=== PATIENT | female | born 1970 | race Caucasian/White ===

== ENCOUNTER → 2018-02-28 08:01 | Outpatient (CLI) | payer OTHER, SELFPAY ==
--- NOTE | 2018-02-28 08:04 | BI_ITS ---
MAMMOGRAPHY - BILATERAL SCREENING REASON FOR EXAM: Female, 47 years old. Routine annual screening examination. PERTINENT HISTORY: Non-contributory. TECHNIQUE: Digital bilateral breast fe (3D mammographic acquisition) in the CC and MLO projections. 2-D mediolateral oblique (MLO) and craniocaudad (CC) views of both breasts were obtained. CAD: Full Field Digital Mammography with Computer Added Detection was performed. COMPARISON: Comparison is made with prior study dated February 03, 2016 and February 01, 2014. FINDINGS: Breast Composition: There are scattered areas of fibroglandular density. There are no dominant masses or suspicious calcifications. Stable a symmetric breast tissue where more breast tissue is seen in the upper outer quadrant of the right breast as compared to the left side. No other significant abnormalities are identified. There has been no significant change since the prior study. BI/SCREENING MAMM (CAD), BILAT IMPRESSION: Stable bilateral screening mammogram. Yearly follow-up mammogram recommended. (A) ASSESSMENT CATEGORY: BIRADS Category 2: Benign. A letter regarding these results will be sent to the patient by the facility within 30 days. Approximately 10% of breast cancers are not detected by mammography. A normal mammogram should not delay biopsy of a clinically suspicious abnormality. [id number] Electronically Signed: Tobias Magaña MD at 10:09 EDT Tel [phone], Service support ,
== END ==
PROVIDERS: Family Provider Family Medicine; PCP Family Medicine; Visit Provider Family Medicine
DX: Z12.31 Encounter for screening mammogram for malignant neoplasm of breast (principal)
CPT/HCPCS: 77063; 77067

== ENCOUNTER → 2018-06-12 10:35 | Outpatient (CLI) | payer OTHER, SELFPAY ==
--- NOTE | 2018-06-12 10:37 | RAD_ITS ---
STUDY: X-RAY - LEFT ANKLE REASON FOR EXAM: Female, 48 years old. Injury. Pain. TECHNIQUE: 3 view(s) of the ankle. COMPARISON: None. FINDINGS: Normal visualized distal tibia and fibula. Normal medial and lateral malleoli. Normal tibiotalar articulation and ankle mortise. Moderate plantar spur. The visualized subtalar, talonavicular, calcaneocuboid and tarsal articulations are normal. There is no demonstrated fracture. The soft tissue structures are unremarkable. RAD/Ankle min 3 Views IMPRESSION: Normal x-ray examination of the ankle. Electronically Signed: Jin Delgado MD at 17:17 EDT , Service support ,
--- NOTE | 2018-06-12 10:37 | RAD_ITS ---
STUDY: X-RAY - LEFT FOOT CLINICAL: Female, 48 years old. Injury. Pain. TECHNIQUE: 3 view(s) of the foot. COMPARISON: None. FINDINGS: There is a plantar calcaneal spur. Normal visualized subtalar, talonavicular, calcaneocuboid, tarsal and tarsometatarsal articulations. Normal metatarsi. Normal metatarsophalangeal joint of the great toe. Normal tibial and fibular sesamoid bones. Normal interphalangeal joint of the great toe. Normal phalanges of the great toe. Normal second through fifth metatarsophalangeal joints. Normal interphalangeal joints and phalanges of the lesser toes. 3 mm soft tissue calcification medial to the head of the fifth metatarsal probably from previous injury. Otherwise normal soft tissues. RAD/Foot min 3 Views IMPRESSION: No acute abnormality. No significant abnormality. Electronically Signed: Jin Delgado MD at 17:16 EDT , Service support ,
== END ==
PROVIDERS: Family Provider Family Medicine; PCP Family Medicine; Visit Provider Physician Assistant
DX: S93.402A Sprain of unspecified ligament of left ankle, initial encounter (principal); S93.602A Unspecified sprain of left foot, initial encounter
CPT/HCPCS: 73610; 73630

== ENCOUNTER 2018-06-29 11:05 | Observation (INO) | payer OTHER, SELFPAY ==
[2018-06-29] VITALS (13 sets, daily range): BP systolic 142–205; BP diastolic 56–90; PULSE 66–76; RESP 14–21; TEMP 36.2–36.8; O2SAT 96–99; BMI 44.1
--- NOTE | 2018-06-29 11:28 | EKG12_ITS ---
Test Reason : NUMB TINGLE Blood Pressure : / mmHG Vent. Rate : 072 BPM Atrial Rate : 072 BPM P-R Int : 138 ms QRS Dur : 080 ms QT Int : 386 ms P-R-T Axes : 052 023 017 degrees QTc Int : 422 ms Normal sinus rhythm Normal ECG Confirmed by DIANA HERRERA, ANGELICA ([id number]), film editor SHARRI BOWMAN ([id number]) on 07/02/2018 10:50:35 AM Referred By: BRANNON/JOY Confirmed By:ANGELICA ORTIZ MD
--- NOTE | 2018-06-29 11:29 | CT_ITS ---
STUDY: CTA carotid REASON FOR EXAM: Female, 48 years old. Left arm numbness and tingling. Facial twitching RADIATION DOSAGE (If Supplied By Facility): CTDIvol = ( 20.85 ) mGy, DLP = ( 1547.68 ) mGycm. Individualized dose optimization techniques were used for this CT.? TECHNIQUE: Ct images of the neck were obtained after intravenous administration of 100 cc of Isovue-370. Maximum intensity projection imaging was performed COMPARISON: None. FINDINGS: The origin of the great vessels are patent. Bilateral common carotid arteries are patent. The carotid bifurcations are patent. Cervical internal carotid arteries are patent however tortuous. The origin of the vertebral arteries are patent. Bilateral vertebral arteries are patent. Mild degenerative changes in the cervical spine. Borderline enlarged level 2 station cervical lymph nodes prominent palatine tonsils which can be assessed with direct visual dissection. Slightly prominent appearance of the thyroid gland. Airways patent. No apical pneumothorax. IMPRESSION: No significant cervical carotid or vertebral artery stenosis, occlusion or dissection seen. CT/CTA Neck W/WO Contrast IMPRESSION: Electronically Signed: Dany Crowder, at 14:13 EDT Tel , Service support ,
--- NOTE | 2018-06-29 11:29 | CT_ITS ---
STUDY: CTA OF THE BRAIN REASON FOR EXAM: Female, 48 years old. Facial twitching and left arm numbness and tingling RADIATION DOSAGE (If Supplied By Facility): CTDIvol = ( 20.85 ) mGy, DLP = ( 1547.68 ) mGycm TECHNIQUE: CT angiography was performed with a multi-detector CT scanner. Data acquisition was obtained from the skull base through the vertex following intravenous administration of 100 ml of Isovue 370. MIP images were reconstructed from the axial data set. Post-processing of the angiographic images was performed, with multiplanar reformation and 3D reconstruction. Individualized dose optimization techniques were used for this CT. COMPARISON: None. FINDINGS: Petrous, cavernous and supraclinoid segments of the internal carotid arteries are patent. The bilateral middle cerebral arteries are patent. Anterior cerebral arteries are patent. Hypoplastic right A1 segment of the anterior cerebral artery seen. V4 segments of the vertebral arteries are patent. The basilar artery is patent. The posterior cerebral arteries and superior cerebellar arteries are patent IMPRESSION: No evidence for intracranial large vessel occlusion Electronically Signed: Dany Crowder, at 14:10 EDT Tel , Service support , STUDY: CT BRAIN WITHOUT CONTRAST REASON FOR EXAM: Female, 48 years old. Facial twitching and left arm numbness RADIATION DOSAGE (If Supplied By Facility): CTDIvol = ( 44.99 ) mGy, DLP = ( 734.24 ) mGycm TECHNIQUE: Transaxial CT imaging of the brain was performed without administration of intravenous contrast material. Individualized dose optimization techniques were used for this CT. COMPARISON: None. FINDINGS: No evidence for shift of midline structures, mass effect or compression of ventricles noted. No acute intra-articular extra-axial hemorrhage is seen. No abnormal intracranial fluid collections identified. Scattered foci of low-attenuation in the periventricular and subcortical white matter noted which are nonspecific in imaging appearance however likely related with chronic small vessel disease. 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 Calvarium is intact. Mastoid air cells are clear. Paranasal sinuses are essentially clear. IMPRESSION: No evidence for acute intracranial hemorrhage, mass effect or acute large territory infarcts. Chronic small vessel disease. Electronically Signed: Dany Crowder, at 14:11 EDT Tel , Service support , CT/CTA Head W/WO Contrast
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
--- NOTE | 2018-06-29 11:40 | RAD_ITS ---
STUDY: X-RAY CHEST REASON FOR EXAM: Female, 48 years old. Chest pain and left arm numbness. TECHNIQUE: Single AP portable view of the chest. COMPARISON: Prior comparison studies are not available for review at this time. FINDINGS: There are slightly prominent markings in the right lower lung probably chronic. No focal infiltrate is seen. There is no demonstrated pleural abnormality. There is borderline cardiomegaly. Normal mediastinum and andria. Normal visualized pulmonary arteries. Normal visualized aortic arch and descending thoracic aorta. The thoracic spine is suboptimally visualized. Normal visualized ribs, clavicles, and shoulders. There is no demonstrated abnormality of the visualized soft tissue structures of the upper abdomen. RAD/Chest 1 View (Portable) IMPRESSION: No active pulmonary disease. Electronically Signed: Lasha Ba MD at 12:29 EDT Tel , Service support ,
[2018-06-29] MEDS: 0.9% Normal Saline 1,000 ML 150 ML IV (12:06)
[2018-06-29 12:32] LABS: Absolute Lymphocyte Count 2.16 X10^3/ul (0.83-4.51); Absolute Neutrophil Count 5.6 X10^3/uL (2.0-7.7); Basophil# 0.02 X10^3/uL; Basophil% 0.2 % (0-1); Eosinophil# 0.15 X10^3/uL; Eosinophils% 1.8 % (0-5); Hematocrit 39.8 % (37-47); Hemoglobin 13.4 g/dl (12.0-15.0); Lymphocyte # 2.16 X10^3/ul (4.0); Mean Corp Hgb Conc 33.7 g/gl (32-36); Mean Corpuscular Hgb 30.2 pg (27.0-32.0); Mean Corpuscular Volume 89.6 fL (81-99); Mean Platelet Vol. 10.6 fl (6.2-12.0); Monocyte# 0.38 X10^3/uL; Monocyte% 4.6 % (0-10); Neutrophil # 5.59 X10^3/uL (2.7-7.7); Neutrophil % 67.2 % (47-70); Platelet Count 182 K/mm3 (150-450); RBC Distribution Width CV 12.9 % (11.6-14.6); RBC Distribution Width SD 42.1 fl (35.1-43.9); Red Blood Count 4.44 M/mm3 (4.2-5.4); White Blood Count 8.3 K/mm3 (4.4-11.0)
[2018-06-29 12:35] LABS: POSITIVE COUNT NO; POSITIVE DIFFERENTIAL NO; POSITIVE MORPHOLOGY NO
[2018-06-29 12:43] LABS: Anion Gap 9 (5-15); BUN 15 mg/dL (7-18); Calcium,Total 9.1 mg/dL (8.5-10.1); Chloride 105 mmol/L (98-107); Creatinine, Serum 0.83 mg/dL (0.55-1.02); EST Glomerular Filtration Rate 78 mL/min (>60); Est Glom Filt Rate - Afr Amer 95 mL/min (>60); Estimated Creatinine Clearance 79.28 ml/min; Glucose 100 mg/dL (74-106); Sodium Level 143 mmol/L (136-145)
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
--- NOTE | 2018-06-29 16:07 | MRI_ITS ---
STUDY: MRI BRAIN WITHOUT CONTRAST REASON FOR EXAM: Female, 48 years old. Left-sided paresthesias TECHNIQUE: Standardized multiplanar fat and water weighted pulse sequences were obtained. COMPARISON: CT of the brain on June 29, 2018 FINDINGS: Normal size of the ventricles and extra-axial spaces for the patient's age. There are a few tiny punctate white matter lesions without mass effect or restricted diffusion. There is a tiny punctate focus of restricted diffusion in the right frontal parietal region consistent with acute ischemic changes.. Normal bilateral basal ganglia. Normal thalami. There is no extra-axial fluid accumulation. Normal flow voids within the major intracranial circulation suggesting patency by spin echo criteria. Normal sella turcica, pituitary gland, infundibular stalk, optic chiasm and hypothalamus. Normal tectal plate and pineal gland. Normal midbrain, rebecca and medulla. Normal cerebellum. Normal basal cisterns. Normal bilateral temporal bones. Normal bilateral internal auditory canals. No demonstrated orbital abnormality, within the constraints of a routine brain study. Normal visualized paranasal sinuses. Normal calvarium and skull base. Normal visualized soft tissue structures. Normal visualized upper cervical spine. MRI/Brain without Contrast IMPRESSION: Minor periventricular white matter ischemic changes with solitary tiny focus of restricted diffusion in the right frontal parietal region consistent with acute ischemic changes. Electronically Signed: King Amanda MD at 17:22 EDT , Service support ,
[2018-06-30] VITALS (9 sets, daily range): BP systolic 141–159; BP diastolic 70–92; PULSE 58–95; RESP 18–20; TEMP 36.6–37; O2SAT 96–98; BMI 44.1
[2018-06-30] MEDS: 0.9% NaCl Peripheral Flush Adult/Peds IV (04:50)
[2018-06-30 05:26] LABS: Anion Gap 11 (5-15); BUN 14 mg/dL (7-18); BUN/Creat Ratio 20.1 RATIO (10-20); Calcium,Total 8.6 mg/dL (8.5-10.1); Chloride 104 mmol/L (98-107); Cholesterol 155 mg/dL (200); EST Glomerular Filtration Rate 96 mL/min (>60); Est Glom Filt Rate - Afr Amer 117 mL/min (>60); Estimated Creatinine Clearance 94.01 ml/min; Glucose 112 mg/dL (74-106); High Density Lipoprotein 46 mg/dL; Potassium 4.1 mmol/L (3.5-5.1); Sodium Level 140 mmol/L (136-145); Triglycerides 107 mg/dL; Very Low Density Lipoprotein 21 mg/dL (5-40)
--- NOTE | 2018-06-30 07:00 | ECHOD_ITS ---
Reason For Study: TIA/STROKE Procedure This was a 2D Doppler, Color Flow transthoracic echocardiogram. The exam was of adequate technical quality. Exam performed portable in patient room. Left Ventricle Normal LV size. Left ventricular systolic function is normal. The estimated ejection fraction is 70 %. Transmitral doppler flow suggestive of impaired relaxation of left ventricle. No regional wall motion abnormalities noted. Right Ventricle Normal RV size. Normal systolic function. Atria The left atrium is mildly enlarged. Normal right atrium. No doppler evidence for ASD. Bubble contrast study negative for right to left interatrial shunt. Mitral Valve There is no mitral annular calcification. Normal mitral valve. Trivial mitral valve insufficiency. Tricuspid Valve Normal tricuspid valve. Trivial tricuspid valve insufficiency. Right ventricular systolic pressure estimated to be 48 mmHg. Aortic Valve Trisinus/trileaflet aortic valve. Normal aortic valve. Pulmonic Valve The pulmonic valve is not well visualized. Great Vessels Normal sized aortic root. Pericardium/Pleural No pericardial effusion. Medication Performed a rapid injection of agitated mix of 9 cc saline and 1cc air to assess for atrial septal defect. MMode/2D Measurements & Calculations LVIDd: 4.4 cm IVSd: 1.2 cm Ao root diam: 2.8 cm LVIDs: 2.3 cm LVPWd: 1.1 cm LA dimension: 4.1 cm FS: 47.1 % LAV(MOD-bp): 86.8 ml LA A4 area: 24.8 cm2 RA A4 area: 18.2 cm2 LAV(MOD-bp) Indexed: 38.4 ml/m2 LAV(MOD-sp2): 86.1 ml LAV(MOD-sp4): 83.0 ml Time Measurements MV dec time: 0.29 sec Doppler Measurements & Calculations MV E max tyrel: 117.9 cm/sec Lat Peak E' Tyrel: 11.6 cm/sec Med Peak E' Tyrel: 7.4 cm/sec MV A max tyrel: 139.4 cm/sec E/E' lat: 10.2 E/E' med: 15.9 MV E/A: 0.85 MV V2 max: 151.5 cm/sec MV P1/2t max tyrel: 152.4 cm/sec Ao V2 max: 185.7 cm/sec MV max P.2 mmHg MV P1/2t: 89.5 msec Ao max P.8 mmHg MV V2 mean: 86.0 cm/sec MV dec slope: 498.6 cm/sec2 Ao V2 mean: 123.4 cm/sec MV mean P.5 mmHg MVA(P1/2t): 2.5 cm2 Ao mean P.9 mmHg MV V2 VTI: 39.1 cm Ao V2 VTI: 40.7 cm LV V1 max: 166.9 cm/sec PA V2 max: 126.8 cm/sec TR max tyrel: 335.8 cm/sec LV V1 max P.1 mmHg TR max P.1 mmHg LV V1 mean P.5 mmHg LV V1 mean: 109.5 cm/sec LV V1 VTI: 38.4 cm Interpretation Summary Left ventricular systolic function is normal. The estimated ejection fraction is 70 %. The left atrium is mildly enlarged. Trivial mitral valve insufficiency. Trivial tricuspid valve insufficiency. Right ventricular systolic pressure estimated to be 48 mmHg. Transmitral doppler flow suggestive of impaired relaxation of left ventricle Bubble contrast study negative for right to left interatrial shunt. Ordering Physician: Tatiana Ricci Referring Physician: Hussein Pinto Performed By: Sukhwinder Gracia RCS
[2018-06-30] MEDS: Aspirin 81 MG TAB.CHEW PO (07:59)
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
--- NOTE | 2018-06-30 15:32 | MRI_ITS ---
STUDY: MRI CERVICAL SPINE WITHOUT CONTRAST REASON FOR EXAM: Female, 48 years old. Left-sided paresthesias TECHNIQUE: Standardized fat and water weighted pulse sequences were obtained in the sagittal and axial planes. COMPARISON: None FINDINGS: Normal foramen magnum and brainstem-cervical cord junction. Normal craniovertebral junction. Normal anterior atlantoaxial articulation. Normal odontoid process. 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 Normal vertebral bodies and posterior osseous elements. C2-3: Normal endplates. Normal disc height, signal and morphology. Normal central canal and intervertebral neural foramina. C3-4: Normal endplates. Normal disc height, signal and morphology. Normal central canal and intervertebral neural foramina. C4-5: Normal endplates. Normal disc height, signal and minimal bulging of the disc. Normal central canal and intervertebral neural foramina. C5-6: Normal endplates. Normal disc height, signal and minimal bulging of the disc.. Normal central canal and intervertebral neural foramina. C6-7: Normal endplates. Normal disc height, signal and tiny central disc protrusion.. Normal central canal and intervertebral neural foramina. C7-T1: Normal endplates. Normal disc height, signal and morphology. Normal central canal and intervertebral neural foramina. Normal cervical cord. Normal visualized soft tissue structures. MRI/Spine Cervical (Routine) IMPRESSION: Tiny central disc protrusion at C6-7 and minor bulging of the discs at C4-5 and C5-6 without significant spinal stenosis or cord compression Electronically Signed: King Amanda MD at 17:07 EDT , Service support ,
--- NOTE | 2018-06-30 18:56 | PCM.DC ---
- Discharge Diagnoses Current Active Problems: Current Active and Chronic Problems (Last Reviewed 06/12/18 @ 10:56 by Estrellita Osborn) Tingling of left arm and left side of face (Acute) You will use the following diet at home:: No restrictions Your food should be the consistency of: Regular Your liquids should be the consistency of: Regular/Thin Discharge Activity: Return to Normal Activity Return to work on:: 07/15/18 Weight Bearing Status: Full weight bearing Allergies/Adverse Reactions: Allergies bacitracin [From Neosporin ([id number])] Adverse Reaction (Verified 06/29/18 11:05) Rash bacitracin zinc [From Neosporin ([id number]-ojk-raoli)] Adverse Reaction (Verified 06/29/18 11:05) Rash neomycin sulfate [From Neosporin (foi-ftt-laykn)] Adverse Reaction (Verified 06/29/18 11:05) Rash polymyxin B [From Neosporin (qjp-dmv-vqjfa)] Adverse Reaction (Verified 06/29/18 11:05) Rash Medications to take at Discharge Aspirin [Aspirin, Baby] 81 mg PO DAILY@0800 tab.chew 06/30/18 Atorvastatin Calcium [Lipitor] 20 mg PO DAILY #30 tab 06/30/18 The following prescriptions were given: Atorvastatin Calcium [Lipitor] 20 mg PO DAILY #30 tab Primary Care Physician: Lakeisha Wetzel DO [Primary Care Provider] - Please follow up with your Primary Care Physician in: later this week, she will need to set you up with a [facility] as an outpatient Test Results: Test results from this visit will be discussed in further detail at your follow-up appointment, if applicable. Please Follow Up With: Amrit Sandoval MD When: Jul 14 or the week prior ( or Saturday of that week)
--- NOTE | 2018-06-30 18:59 | DCINST_ITS ---
- Discharge Diagnoses Current Active Problems: Current Active and Chronic Problems (Last Reviewed 06/12/18 @ 10:56 by Estrellita Osborn) Tingling of left arm and left side of face (Acute) You will use the following diet at home:: No restrictions Your food should be the consistency of: Regular Your liquids should be the consistency of: Regular/Thin Discharge Activity: Return to Normal Activity Return to work on:: 07/15/18 Weight Bearing Status: Full weight bearing Allergies/Adverse Reactions: Allergies bacitracin [From Neosporin ([id number])] Adverse Reaction (Verified 06/29/18 11:05) Rash bacitracin zinc [From Neosporin (lmr-mvy-virks)] Adverse Reaction (Verified 04/11 11:05) Rash neomycin sulfate [From Neosporin (eli-znd-ciwwb)] Adverse Reaction (Verified 04/11 11:05) Rash polymyxin B [From Neosporin (eng-mrn-cteke)] Adverse Reaction (Verified 11:05) Rash Medications to take at Discharge Aspirin [Aspirin, Baby] 81 mg PO DAILY@0800 tab.chew 06/30/18 Atorvastatin Calcium [Lipitor] 20 mg PO DAILY #30 tab 06/30/18 The following prescriptions were given: Atorvastatin Calcium [Lipitor] 20 mg PO DAILY #30 tab Primary Care Physician: Lakeisha Wetzel DO [Primary Care Provider] - Please follow up with your Primary Care Physician in: later this week, she will need to set you up with a JENNIFER as an outpatient Test Results: Test results from this visit will be discussed in further detail at your follow- up appointment, if applicable. Please Follow Up With: Amrit Sandoval MD When: Jul 14 or the week prior ( or Saturday of that week)
--- NOTE | 2018-06-30 19:36 | NURSING ---
This nurse called lab to find out about lab draw for lupus that Dr. Odonnell ordered. Lab personnel stated that she called [facility] to add this test to blood they were sent earlier for testing. Informed pt. of this and she is now able to go home as discharge process is complete. Pt. left with and belongings. Pt. walking off unit with no distress noted.
--- NOTE | 2018-07-02 19:17 | DS.PCM_ITS ---
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 Patient denied any speech difficulties or any visual disturbances. Blood pressure in the emergency room was elevated at 205/105, and age stroke score was 0. CT of the brain showed what appeared to be a small right superior frontal lobe infarct which was called chronic. No acute abnormality was noted. CT of the brain was unremarkable. CTA of the neck showed no significant stenosis. Patient was placed and observation status on PCU, she was given labetalol in the emergency room for hypertension, an MRI of the brain was obtained the following day as well as a C-spine MRI. C-spine MRI showed degenerative disc disease of the cervical spine with a tiny central disc protrusion at C6-C7 and minor bulging of the discs at C4-C5 and C5-C6 without significant spinal stenosis or cord compression. MRI of the brain showed an acute tiny frontal parietal infarction. Patient was seen and examined on 06/30/18, she was discharged in stable condition to home. Patient did not require PT, OT, or speech evaluation. Discharge Activity: Return to Normal Activity Return to work on:: 07/15/18 Weight Bearing Status: Full weight bearing Home Medications: Medications to take at Discharge Aspirin [Aspirin, Baby] 81 mg PO DAILY@0800 tab.chew 06/30/18 Atorvastatin Calcium [Lipitor] 20 mg PO DAILY #30 tab 06/30/18 Following Prescrptions Were Given to Patient: Atorvastatin Calcium [Lipitor] 20 mg PO DAILY #30 tab Primary Care Physician: Lakeisha Wetzel DO [Primary Care Provider] - Please follow up with your Primary Care Physician in: later this week, she will need to set you up with a JENNIFER as an outpatient Please Follow Up With: Amrit Sandoval MD When: Jul 14 or the week prior ( or Saturday of that week) Disposition: Home Minutes spent on discharge:: 25 Patient Condition:: Stable Medical Necessity - Tobacco Use Smoking Status: Never smoker Meaningful Use Info Meaningful Use Diagnoses (Choose all that apply): Ischemic CVA - CVA Therapy Assessed for PT,OT and/or ST?: No Reason therapy not assessed?: Patient Refused - PT and OT as well as speech therapy was not felt necessary for this patient during her hospitalization - Ischemic Stroke Antithrombotic order at d/c?: Yes Dx of Atrial fib/flutter?: No Anticoagulant at discharge?: No Reason anticoagulant not ordered: Treatment not Indicated Statins at discharge?: Yes Primary Dx Acute Ischemic CVA?: Yes IV tPA ordered during stay?: No Reason IV t-PA not ordered: Treatment not Indicated Code Visit OBSV E&M: 74875 Observation care discharge
[2018-07-07 20:08] LABS: Protein C Antigen 104 % (60-150); Protein C, Functional 135 % (73-180)
[2018-07-08 07:02] LABS: Anti-Cardiolipin Ab, IgG, Qn < 9 GPL U/mL (0-14); Anti-Cardiolipin Ab, IgM, Qn < 9 MPL U/mL (0-12); Anti-Thrombin 3 AG, Immunol 83 % (72-124); Antithrombin 3 Function 102 % (75-135); Beta-2-Glycoprotein I IgA <9 (0-25); Beta-2-Glycoprotein I IgG <9 (0-20); Beta-2-Glycoprotein I IgM <9 (0-32)
== END 2018-06-30 19:10 | disposition home or self-care (01) ==
LOC: ED 13:40 → PCU 16:06
PROVIDERS: Admitting Provider Internal Medicine; Emergency Provider Emergency Medicine; Family Provider Family Medicine; PCP Family Medicine; Visit Provider Internal Medicine
DX: I63.8 Other cerebral infarction (principal); M50.30 Other cervical disc degeneration, unspecified cervical region; I10 Essential (primary) hypertension; R20.0 Anesthesia of skin; R20.2 Paresthesia of skin; K21.9 Gastro-esophageal reflux disease without esophagitis; I16.0 Hypertensive urgency; R29.700 NIHSS score 0
CPT/HCPCS: 36415; 70496; 70498; 70551; 71045; 72141; 80048; 80061; 81240; 81241; 84484; 85025; 85300; 85301; 85302; 85303; 85613; 86146; 86147; 93005; 93306; 96361; 96374; 99218; 99285; J7030; Q9957; Q9967; A4216; G0378

== ENCOUNTER 2018-07-15 12:41 | Emergency (ER) | payer OTHER, SELFPAY ==
[2018-07-15 12:42] VITALS: BP 200/90; PULSE 77; RESP 18; TEMP 37.7; O2SAT 98; BMI 43.2
[2018-07-15 12:49] VITALS: RESP 18
[2018-07-15] MEDS: 0.9% Normal Saline 1,000 ML 150 ML IV (13:29)
[2018-07-15 13:35] LABS: Absolute Lymphocyte Count 2.22 X10^3/ul (0.83-4.51); Absolute Neutrophil Count 4.6 X10^3/uL (2.0-7.7); Basophil# 0.02 X10^3/uL; Basophil% 0.3 % (0-1); Eosinophil# 0.12 X10^3/uL; Eosinophils% 1.6 % (0-5); Hematocrit 41.8 % (37-47); Hemoglobin 13.6 g/dl (12.0-15.0); Lymphocyte # 2.22 X10^3/ul (4.0); Lymphocyte % 30.4 % (19-41); Mean Corp Hgb Conc 32.5 g/gl (32-36); Mean Corpuscular Hgb 29.1 pg (27.0-32.0); Mean Corpuscular Volume 89.3 fL (81-99); Mean Platelet Vol. 10.5 fl (6.2-12.0); Monocyte# 0.38 X10^3/uL; Monocyte% 5.2 % (0-10); Neutrophil # 4.55 X10^3/uL (2.7-7.7); Neutrophil % 62.4 % (47-70); POSITIVE COUNT NO; POSITIVE DIFFERENTIAL NO; POSITIVE MORPHOLOGY NO; Platelet Count 152 K/mm3 (150-450); RBC Distribution Width CV 12.9 % (11.6-14.6); RBC Distribution Width SD 41.8 fl (35.1-43.9); Red Blood Count 4.68 M/mm3 (4.2-5.4); White Blood Count 7.3 K/mm3 (4.4-11.0)
[2018-07-15 13:47] LABS: Anion Gap 6 (5-15); BUN 12 mg/dL (7-18); BUN/Creat Ratio 16.8 RATIO (10-20); Calcium,Total 8.9 mg/dL (8.5-10.1); Chloride 104 mmol/L (98-107); Creatinine, Serum 0.72 mg/dL (0.55-1.02); EST Glomerular Filtration Rate 93 mL/min (>60); Est Glom Filt Rate - Afr Amer 113 mL/min (>60); Glucose 97 mg/dL (74-106); Potassium 3.8 mmol/L (3.5-5.1); Sodium Level 138 mmol/L (136-145)
[2018-07-15 13:54] VITALS: BP 172/80; PULSE 71; RESP 18; O2SAT 98
[2018-07-15 14:02] VITALS: BP 159/79; PULSE 71; RESP 18; O2SAT 98
--- NOTE | 2018-07-15 14:19 | ED.VISSUMM ---
- ER Visit Summary Date of Service: 07/15/18 Chief Complaint: Vertigo and lightheadedness History of Present Illness: The patient is a [address] Wetzel and Dr. Sandoval. She has a history of her stroke June 29 which she reports left her with left eye twitching and nystagmus. She went back to work today and reports that approximately 30 this morning while sitting she began to feel very lightheaded. She reports that her face felt hot and flushed during this episode. States that then again in approximately 1205 she had a sensation of vertigo that lasted approximately 2 seconds. During that she had been standing for approximately 1 minute. She was nauseated during this. She did not vomit. Is completely resolved. Patient reports she was seen by her primary care physician her blood pressure was elevated in the office and that they were waiting to see if this went down with time rather than put her on antihypertensives. Review of systems: General: No fever, chills, cold sweats. Cardiovascular: No chest pain, palpitations. Respiratory: No cough, shortness of breath, dyspnea on exertion. Gastrointestinal: No abdominal pain, nausea, vomiting, diarrhea, melena, or hematochezia. Genitourinary: No dysuria, frequency, hematuria. Skin: No rash. Neuro: No headache, numbness, weakness. Physical Examination: Vitals: 99.8, 200/90, 77, 18, 90% on room air which is not hypoxic. Repeat blood pressure is 140/74. General: Well-nourished and well-developed. Head: Normocephalic atraumatic. Neck: Supple, no lymphadenopathy. No JVD. Nontender. Cardiovascular: Regular rate and rhythm. No murmurs. Respiratory: No respiratory distress. Clear to auscultation bilaterally. Abdominal: Soft, nontender, nondistended, normal bowel sounds. No guarding, rebound, or peritoneal signs. Back: Nontender. Extremities: Nontender, no edema. Skin: Normal color, no rash. Neurologic: Alert and oriented ?3. Cranial nerves II through XII are intact. Normal strength and sensation. Psych: Normal affect. Test Results: CBC is normal. Chem-[address] brain shows chronic changes. I did review the MRI that she had earlier this month which showed minor periventricular white matter ischemic changes with a solitary tiny focus of restricted diffusion in the right frontoparietal region. Emergency Department Course and Treatment: Patient's blood pressure decreased to 140/74 without any treatment. I had a prolonged discussion with her about the need for antihypertensives and she would like to be started on something. We discussed possibility of an JOSE inhibitor, R, hydrochlorothiazide, and clonidine. Ultimately she opted for diltiazem. I also discussed the patient these episodes of facial flushing and hypertension may warrant further evaluation for pheochromocytoma, but I feel this can be performed as an outpatient. Treatment Plan: Patient is given a prescription for a diltiazem 120 mg p.o. daily and instructed follow-up her primary care physician within 3 days for repeat blood pressure check and further evaluation. Return to the emergency department for any worsening symptoms. Disposition: To home in improved and stable condition. Impression: 1. Hypertension. This note was generated with [employer] dictation software. It may contain incorrect words, spelling, and punctuation that were not noted in review of the chart prior to signing ED Disposition - Plan for ED Patient: Disposition: Home or Assisted Living Chief Complaint: Hypertension Instructions: ED HTN Established Prescriptions: Diltiazem HCl [Diltiazem 24Hr ER] 120 mg PO DAILY #30 cap.er.24h Referrals: Lakeisha Wetzel DO [Primary Care Provider] - 3-5 Days
[2018-07-15 15:02] VITALS: PULSE 68; RESP 18; O2SAT 98
[2018-07-15 15:10] VITALS: BP 170/68; PULSE 68; RESP 18; O2SAT 98
== END 2018-07-15 15:11 | disposition home or self-care (01) ==
PROVIDERS: Emergency Provider Emergency Medicine; Family Provider Family Medicine; PCP Family Medicine
DX: I10 Essential (primary) hypertension (principal); Z86.73 Personal history of transient ischemic attack (TIA), and cerebral infarction without residual deficits; Z79.82 Long term (current) use of aspirin; Z79.899 Other long term (current) drug therapy
CPT/HCPCS: 70450; 80048; 85025; 96360; 96361; 99285; A4216

== ENCOUNTER → 2018-07-16 09:46 | Outpatient (CLI) | payer OTHER, SELFPAY ==
[2018-07-16 10:36] LABS: Erythrocyte Sedimentation Rate 16 mm/hr (0-20)
[2018-07-16 10:54] LABS: CRP < 2.90 mg/L (0.0-3.0); Iron 79 ug/dL (50-170); T4 Free Direct 0.83 ng/dL (0.76-1.46); Thyroid Stim Hormone (TSH) 2.16 uIU/mL (0.358-3.74)
[2018-07-16 10:55] LABS: Vitamin B12 429 pg/mL (211-911)
[2018-07-17 14:39] LABS: ANTINUCLEAR ANTIBODIES DIRECT Negative (Negative)
[2018-07-20 13:56] LABS: Epinephrine, Pl <15 pg/mL (0-62); Norepinephrine, Pl 341 pg/mL (0-874)
[2018-07-21 11:10] LABS: Dopamine, Pl <30 pg/mL (0-48)
== END ==
PROVIDERS: Family Provider Family Medicine; PCP Family Medicine; Visit Provider Family Medicine
DX: M25.50 Pain in unspecified joint (principal); M79.1 Myalgia; I10 Essential (primary) hypertension; R23.2 Flushing; R20.2 Paresthesia of skin; R53.83 Other fatigue
CPT/HCPCS: 36415; 82384; 82607; 83540; 84439; 84443; 84480; 85652; 86038; 86140

== ENCOUNTER → 2018-07-17 11:14 | Outpatient (CLI) | payer OTHER, SELFPAY ==
[2018-07-19 12:07] LABS: Dopamine, UR 271 ug/L (Undefined); Epinephrine, 24Ur 3 ug/24 hr (0-20); Epinephrine, Ur 2 ug/L (Undefined); Norepinephrine, 24Ur 63 ug/24 hr (0-135); Norepinephrine, Ur 42 ug/L (Undefined)
[2018-07-20 11:21] LABS: Dopamine, 24Ur 407 ug/24 hr (0-510)
== END ==
PROVIDERS: Family Provider Family Medicine; PCP Family Medicine; Visit Provider Family Medicine
DX: M25.50 Pain in unspecified joint (principal); M79.1 Myalgia; I10 Essential (primary) hypertension; R23.2 Flushing; R20.2 Paresthesia of skin; R53.83 Other fatigue
CPT/HCPCS: 81050; 82384

== ENCOUNTER → 2018-07-18 14:32 | Outpatient (CLI) | payer OTHER, SELFPAY ==
[2018-07-18 15:26] LABS: 24HR. Urine Creatinine 1.92 g/24 HR (0.70-1.90)
[2018-07-23 03:07] LABS: Metanephrine, Ur 30 ug/L (Undefined); Normetanephrines, Ur 179 ug/L (Undefined)
[2018-07-23 11:23] LABS: Metanephrines, 24Ur 62 ug/24 hr (45-290); Normetanephrines, 24Ur 367 ug/24 hr (82-500)
== END ==
PROVIDERS: Family Provider Family Medicine; PCP Family Medicine; Visit Provider Family Medicine
DX: R59.0 Localized enlarged lymph nodes (principal); M25.50 Pain in unspecified joint; M79.1 Myalgia; I10 Essential (primary) hypertension; R23.2 Flushing; R20.2 Paresthesia of skin; R53.83 Other fatigue
CPT/HCPCS: 76536; 82570; 83835

== ENCOUNTER → 2018-07-19 07:13 | Outpatient (CLI) | payer OTHER, SELFPAY ==
--- NOTE | 2018-07-19 07:16 | CT_ITS ---
STUDY: CT ABDOMEN AND PELVIS WITHOUT CONTRAST REASON FOR EXAM: Female, 48 years old. Evaluate for pheochromocytoma. RADIATION DOSAGE (If Supplied By Facility): CTDIvol = ( 23 ) mGy, DLP = ( 1241 ) mGycm TECHNIQUE: Transaxial images were obtained from the dome of the diaphragm to the symphysis pubis with oral contrast, and without intravenous contrast. Sagittal and coronal images were reconstructed. Individualized dose optimization techniques were used for this CT. COMPARISON: None. FINDINGS: Evaluation of the abdominal viscera is limited in the absence of intravenous contrast. The visualized lung bases are clear. The visualized portions of the heart and pericardium are within normal limits. The patient is status post cholecystectomy. The liver demonstrates an unremarkable unenhanced appearance. The spleen is normal in size. The pancreas demonstrates an unremarkable unenhanced appearance. The adrenal glands are within normal limits. There are no renal or ureteral stones. There is no hydronephrosis. Normal visualized stomach. There is no bowel obstruction or inflammation. The appendix is visualized and appears normal. The aorta is normal in caliber. There is no abdominal or pelvic free air, free fluid, fluid collection or lymphadenopathy. There is an intrauterine device noted. There are no destructive osseous lesions. CT/Abdomen/Pelvis without Cont IMPRESSION: Study limited without contrast. No pheochromocytoma identified. No adrenal nodules or masses. No abnormal soft tissue masses to suggest an extraadrenal pheochromocytoma. Gallstones. Electronically Signed: Hussein Hernández, at 23:08 EDT Tel , Service support ,
== END ==
PROVIDERS: Family Provider Family Medicine; PCP Family Medicine; Visit Provider Family Medicine
DX: R23.2 Flushing (principal); I16.0 Hypertensive urgency
CPT/HCPCS: 74176

== ENCOUNTER → 2018-08-25 13:15 | Outpatient (CLI) | payer OTHER, SELFPAY ==
--- NOTE | 2018-08-25 13:17 | STEWCON_ITS ---
Reason For Study: Chest Pain Stress Results Protocol: Singh Protocol Maximum Predicted HR: 174 bpm Target HR: 148 bpm% Max imum Predicted HR: 89 % DurationHeart Rate Stage (mm:ss) (bpm) BPCom ment Baseline 64 132/84 Diluted Definity 2 ML Given; No Chest Pain Singh Protocol Stage I 3:00 14 1 146/80No Chest Pain Singh Protocol Stage II 3:00 15 5 190/78No Chest Pain Recovery 85 126/68 No Chest Pain Stress Duration: 6:00 mm:ss Maximum Stress HR: 155 bpmM ETS: 7 Baseline Echocardiogram Findings Stress Echo Wall motion Data Resting WMIntermediate WMStress WM Resting Wall Motion Wall Motion Stress No regional wall motion No regional wall motion abnormalities noted. abnormalities noted. Ejection Fraction 60 %. Ejection Fraction 70 %. Stress Results Normal blood pressure response to exercise. Exercise was stopped due to fatigue. Interpretation Summary Exercise stress echo. Resting EKG demonstrates normal sinus rhythm with a rate of 64 bpm normal intervals and noted resting blood pressures 132/84 mmHg. The patient exercised according to regular Singh protocol for total duration of 6 minutes attaining a maximum heart rate of 164 bpm which was 94% of maximum predicted heart rate and a workload of 7 metabolic equivalents. At rest there were no ST or T wave changes noted suggest ischemia. The patient maintained sinus rhythm throughout the recording. At peak exercise upsloping ST changes only were noted. The resting blood pressure 132/84 with a peak blood pressure 190/78 mmHg. No clinical angina was noted the test was terminated due to shortness of breath. Resting echocardiogram demonstrates ejection fraction approximately 60%. The patient exercised according to the Singh protocol and at peak exercise the peak ejection fraction was noted to be 70%. No new wall motion abnormalities were present. No clinical angina was present. Conclusion: Normal exercise stress echo at a moderate workload. No clinical angina noted.. Ordering Physician: Anthony De Jesus Referring Physician: Liza, Anthony Performed By: Rut Durham RDCS, RVT
== END ==
PROVIDERS: Family Provider Family Medicine; PCP Family Medicine; Referring Provider Internal Medicine Cardiovascular Disease; Visit Provider Internal Medicine Cardiovascular Disease
DX: R07.9 Chest pain, unspecified (principal)
CPT/HCPCS: 93017; 93350; Q9957; A4216; C8928

== ENCOUNTER → 2018-12-05 12:05 | Outpatient (CLI) | payer OTHER, SELFPAY ==
[2018-11-28 11:01] VITALS: BMI 43.7
--- NOTE | 2018-12-05 12:10 | RAD_ITS ---
STUDY: X-RAY CHEST REASON FOR EXAM: Female, 48 years old. Wheezing and cough with shortness of breath for a couple weeks TECHNIQUE: PA and lateral views of the chest. COMPARISON: None. FINDINGS: The lungs are clear and expanded. There is no demonstrated pleural abnormality. Normal size heart. Normal mediastinum and andria. Normal visualized pulmonary arteries. Normal visualized aortic arch and descending thoracic aorta. Normal visualized thoracic spine. Normal visualized ribs, clavicles, and shoulders. There is no demonstrated abnormality of the visualized soft tissue structures of the upper abdomen. RAD/Chest PA and Lateral IMPRESSION: Normal x-ray examination of the chest. Electronically Signed: Jh Florez MD at 18:20 EST , Service support ,
== END ==
PROVIDERS: Family Provider Family Medicine; PCP Family Medicine; Referring Provider Family Medicine; Visit Provider Family Medicine
DX: J20.9 Acute bronchitis, unspecified (principal)
CPT/HCPCS: 71046

== ENCOUNTER → 2019-08-05 10:44 | Outpatient (CLI) | payer OTHER, SELFPAY ==
[2019-03-21 11:18] VITALS: BMI 43.0
--- NOTE | 2019-08-05 10:49 | US_ITS ---
STUDY: ABDOMINAL ULTRASOUND - RIGHT UPPER QUADRANT REASON FOR VISIT: Female, 49 years old. Right upper quadrant pain for one month. TECHNIQUE: Ultrasound evaluation of the right upper quadrant was performed with real-time and static anderson-scale imaging. TECHNICAL QUALITY: Adequate. COMPARISON: None. FINDINGS: Liver: The liver measures 17.7 cm. There is increased echogenicity consistent with fatty infiltration. The bile ducts are within normal limits. There is hepatic color flow. The direction of portal flow is hepatopetal. There is no demonstrated mass lesion. Gallbladder: Normal distended gallbladder. The gallbladder wall measures 2.7 mm. There is a negative sonographic Mccord's sign. There is no pericholecystic fluid. There are multiple echogenic structures within the gallbladder, consistent with multiple gallstones. Common Bile Duct (C.B.D.): The common bile duct measures 3.5 mm. Pancreas: Normal size of the head, body and tail of the pancreas. There is normal echogenicity of the pancreas. There is no demonstrated pancreatic mass or cyst. Right Kidney: Normal size of the right kidney. The right kidney measures 11.5 x 5.7 x 5.2 cm. Normal renal cortex. The right cortex measures 1.8 cm. There is no demonstrated renal mass or cyst. There is no right hydronephrosis. US/Abdomen Limited IMPRESSION: Fatty liver. Multiple moderate to large gallstones in a nondistended gallbladder without wall thickening or pericholecystic fluid. Nondistended common bile duct. Normal visualized pancreas and right kidney. Electronically Signed: Yasmin Colon MD at 23:54 EDT , Service support ,
== END ==
PROVIDERS: Family Provider Family Medicine; PCP Family Medicine; Referring Provider Family Medicine; Visit Provider Family Medicine
DX: R10.11 Right upper quadrant pain (principal)
CPT/HCPCS: 76705

== ENCOUNTER 2019-08-31 17:50 | Observation (INO) | payer OTHER, SELFPAY ==
[2019-08-15 08:59] VITALS: BMI 43.0
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
[2019-08-31] VITALS (20 sets, daily range): BP systolic 94–151; BP diastolic 35–119; PULSE 59–90; RESP 14–18; TEMP 36.1–37.1; O2SAT 87–100; BMI 43.0; BMI 42.3
--- NOTE | 2019-08-31 09:22 | EKG12_ITS ---
Test Reason : PRE-OP Blood Pressure : / mmHG Vent. Rate : 061 BPM Atrial Rate : 061 BPM P-R Int : 138 ms QRS Dur : 084 ms QT Int : 406 ms P-R-T Axes : 050 026 016 degrees QTc Int : 408 ms Normal sinus rhythm Normal ECG Confirmed by DIANA HERRERA, ANGELICA ([id number]), editor & co founder SKYLAR HINDS ([id number]) on 09/02/2019 2:27:19 PM Referred By: Jarad Rodriguez Confirmed By:ANGELICA ORTIZ MD
[2019-08-31 09:33] LABS: Internal QC Validated? YES +Cl - CLEAR BKGD; Pregnancy, Urine Negative Negative
[2019-08-31] MEDS: Lactated Ringers 1,000 ML 15 ML IV (10:15)
--- NOTE | 2019-08-31 11:10 | RAD_ITS ---
PROCEDURE: INTRAOPERATIVE CHOLANGIOGRAM. REASON FOR EXAM: Female, 49 years old. Cholelithiasis, laparoscopic cholecystectomy.. FLUOROSCOPY TIME (if supplied): (0:17) minutes/seconds. RADIATION DOSAGE (If Supplied By Facility): 23.85 mGy TECHNIQUE: Real-time fluoroscopy was provided during intraoperative contrast infusion via the cystic duct. A cine run comprising 111 images is submitted. COMPARISON: Right upper quadrant ultrasound August 05, 2019; CT abdomen and pelvis without contrast July 19, 2018. FINDINGS: Normal caliber intra-and extrahepatic bile ducts. No filling defects or strictures seen. Contrast flows to the duodenum. RAD/Cholangiogram/ O R,Initial IMPRESSION: Normal intraoperative cholangiogram. Electronically Signed: Moose Rodriguez MD at 14:12 EDT , Service support ,
--- NOTE | 2019-08-31 11:10 | GALL_PTH ---
PATIENT: TONEY MCDONALD LOC: PCU U#:[id number] AGE/SX: 49/F ROOM: [facility] RE08/31/[address]: Dr. Jarad Rodriguez MD : 1970 BED: 1 DIS: 09/01/2019 SPEC #: [id number] RECD: 08/31/19 14:50 STATUS: BRINDA REGarrett #: [id number] GENO: 08/31/19 11:[address]: Jarad Rodriguez DEPT: SURGICAL PATHOLOGY RECD BY: Jadyn Muñoz ENTERED: 08/31/19 15:15 SP TYPE: JOAQUIN LIU DR: Dr. Lakeisha Wetzel DO Tissues: Gallbladder, NOS Procedures: Surgery Specimen Level III HEADER OPERATION: Laparoscopic cholecystectomy with IOC PRE-OP DIAGNOSIS: Calculus of gallbladder with chronic cholecystitis without obstruction K80.10 TISSUE SUBMITTED: Gallbladder MICROSCOPIC DIAGNOSIS Gallbladder, cholecystectomy: Cholesterolosis, chronic cholecystitis and cholelithiasis. AM:yuko 09/01/19 MICROSCOPIC DESCRIPTION Slides are reviewed. GROSS DESCRIPTION Received is one container labeled with the patient's name and designated gallbladder. The specimen consists of a gallbladder measuring 10 cm in length and up to 4 cm in diameter. The external surface is pink-chavez, smooth and glistening for the most part. Focally it is granular, hemorrhagic and contains cautery artifact. The gallbladder contains green-yellow mucoid bile and two mulberry, greenish-yellow stones measuring 1 and 1.5 cm in diameter. The mucosa is bile-stained and without any mass lesions. The gallbladder wall measures 0.2 cm in thickness. The mucosa also shows several yellowish streaks consistent with cholesterolosis. Manager Private sections from the gallbladder and the cystic duct are submitted in one cassette. / SJ:yuko 08/31/19 TC:3 CPT: 81385
--- NOTE | 2019-08-31 11:11 | PCM.DC.GS ---
Discharge Diet: Light diet - advance as tolerated - if you have questions about your diet instructions, please talk to you doctor. Discharge Activity: May Not Drive - for 3-5 days or while taking narcotic pain medicine. May shower in (days): 1 Lifting Restrictions: 10 pounds Call your doctor if your incision/area has: Continuous Slow Oozing, Sudden Increased Bleeding, Increased Pain/ Swelling, Increased Redness, Foul Smelling Discharge Call your doctor if you observe: Fever of 101 or Higher Suture Line Care: Avoid Pulling/Pushing, Avoid Pinching/Bending Additional Dressing/Incision Instructions:: Change or remove dressing in 4 days. Leave steri-strips in place for 1 week. Allergies/Adverse Reactions: Allergies bacitracin [From Neosporin ([id number]-[id number])] Adverse Reaction (Verified 08/31/19 10:03) Rash bacitracin zinc [From Neosporin (raj-tkk-mmtol)] Adverse Reaction (Verified 08/31/19 10:03) Rash neomycin sulfate [From Neosporin (okj-snk-vnfno)] Adverse Reaction (Verified 08/31/19 10:03) Rash polymyxin B [From Neosporin (dwf-odn-ugycl)] Adverse Reaction (Verified 08/31/19 10:03) Rash Medications to take at Discharge Aspirin [Aspirin, Baby] 81 mg PO DAILY@0800 tab.chew 06/30/18 atorvastatin 20 mg tablet 20 mg PO DAILY #30 tab 08/22/18 albuterol sulfate HFA 90 mcg/actuation aerosol inhaler 1 puff INHALATION Q6H PRN #6.7 g 11/28/18 losartan 100 mg tablet 100 mg PO DAILY #30 tab 12/05/18 Levonorgesterol [Mirena] 1 ea IY X1 08/26/19 Hydrocodone Bitart/Apap 5-325 [[place] 5MG-325MG] 1 tablet PO Q6H PRN PRN 2 Days #8 tablet 08/31/19 The following prescriptions were given: Hydrocodone Bitart/Apap 5-325 [[place] 5MG-325MG] 1 tablet PO Q6H PRN PRN 2 Days #8 tablet PRN Reason: Pain Transmission Status: Received by [facility] Primary Care Physician: Lakeisha Wetzel DO [Primary Care Provider] - Test Results: Test results from this visit will be discussed in further detail at your follow-up appointment, if applicable. Please Follow Up With: Jarad Rodriguez MD - [phone] When: Call to make an appointment to be seen in about 10 days.
[2019-08-31] MEDS: Bupivacaine Mpf 0.5% 30 ML VIAL (12:33)
--- NOTE | 2019-08-31 12:34 | PCM.OPRPT ---
Problem List (1) Cholelithiasis with chronic cholecystitis Status: Acute Qualifiers: Report of Operation Date of Procedure: 08/31/19 Pre-Operative Diagnosis: Chronic cholecystitis cholelithiasis Post-Operative Diagnosis: Same Surgery/Procedure Performed:: Laparoscopic cholecystectomy with cholangiogram Description of Surgical Findings:: Timeout and informed consent was obtained. 49-year-old female taken to the operating placement table underwent general endotracheal intubation anesthesia. The abdomen was sterilely prepped draped. Ancef 2 g given intravenously preoperatively. 0.5% Marcaine was used as local anesthetic. Throughout the procedure total 30 cc was used. Skin sites were pre-anesthetized. A supraumbilical vertical incision was created sharp dissection carried down through the substance tissue Evelina was used to elevate the fascia holding sutures of 0 Vicryl placed sharp dissection performed down through the fascia and the peritoneum to get direct access. The son catheter was inserted and the abdomen was insufflated with CO2 to pressure of 12 minutes mercury pressure. 10 lap scope inserted. Inspection revealed adhesions of omentum in the infraumbilical midline and in the epigastric area precluding view to the gallbladder. A 5 Toussaint port was placed in the epigastric area and using hook cautery the omental adhesions superiorly in the right upper quadrant and the infra umbilical area were transected. Patient could then be placed in the reverse Trendelenburg right side up. In addition final minimal port was placed in in the epigastric area. 5 Toussaint port was placed upper outer right quadrant. The gallbladder was distracted blunt dissection was instituted until clearly the infundibular was dissected free. The cystic duct and cystic artery were clearly identified as the critical view was achieved. Were needed hemo-lock clips were used to obtain hemostasis. Hem-o-marco antonio clip was placed on the cystic duct incision made in the cystic duct and through a 14-gauge Angiocath cholangiogram catheter was inserted. Fluoroscopically control cholangiograms were obtained demonstrating normal ductal anatomy and free flow into the small bowel. The clench Vasu catheter was removed and 2 hemo-lock clips were placed on the cystic duct stump prior to transecting it. The cystic artery was clipped twice proximally prior to transecting it. The gallbladder was now tediously dissected from the liver bed. Findings suggested some adherence consistent with inflammation. Electrocautery was used for hemostasis. Where there appeared to be small vessels I secured this with hemo-lock clips. Gallbladder was eventually released. There was absolutely no stone spillage the only bowel occurred from the cystic duct and that was rapidly aspirated free. The gallbladder was placed in a retrieval bag. The right upper quadrant was irrigated and aspirated free of excess fluid. A piece of snow was placed in the liver bed to further assure hemostasis. The right upper quadrant was aspirated. The gallbladder was exited at the umbilicus. Then a running 0 Vicryl was used to approximate the fascia at the superior umbilical site. This was done under laparoscopic visualization to assure no bowel involvement. That fascia was then successfully closed. The abdomen was allowed to deflate of the CO2. Skin edges proximal interrupted 4 Monocryl subdermal stitches. Steri-Strips and Telfa and OpSite dressings applied. Sponge and instrument and needle counts reported the surgeon be correct. Specimens gallbladder. Drains none. Blood loss minimal. The patient was taken to the recovery area in satisfactory condition without apparent complication Jarad Rodriguez M.D., F.A.C.S. Type of Anesthesia:: General Anesthesiologist: Dimitry Hartman
[2019-08-31] MEDS: HYDROcodone Bitartrate/Apap 5/325 Tablet PO ×2 (16:15→20:46)
--- NOTE | 2019-08-31 17:50 | PCM.PN.BLA ---
Progress Note Pt nauseated and sore Will observe overnight
--- NOTE | 2019-08-31 17:51 | SUR.PHASEII ---
PT STATES THAT SHE DOES NOT FEEL THAT SHE CAN GO HOME, REQUESTING TO BE ADMITED. DR BHANDARI NOTIFIED.
[2019-08-31] MEDS: Lactated Ringers 1,000 ML 70 ML IV (18:48)
[2019-08-31] MEDS: Albuterol 2.5 MG/3 ML VIAL.NEB. INHALATION (18:57)
--- NOTE | 2019-08-31 19:25 | RAD_ITS ---
STUDY: X-RAY CHEST REASON FOR EXAM: Female, 49 years old. Shortness of breath. Laparoscopic cholecystectomy earlier today. TECHNIQUE: PA and lateral views of the chest. COMPARISON: PA and lateral chest x-ray December 05, 2018. FINDINGS: The lungs are not quite as fully expanded today and there is mild bibasilar crowding/subsegmental atelectasis. No lobar consolidation. There is no demonstrated pleural abnormality. Normal size heart. Normal mediastinum and andria. Normal visualized pulmonary arteries. Normal visualized aortic arch and descending thoracic aorta. Normal visualized thoracic spine. Normal visualized ribs, clavicles, and shoulders. There is no demonstrated abnormality of the visualized soft tissue structures of the upper abdomen. RAD/Chest PA and Lateral IMPRESSION: Suboptimal inspiratory effort with mild basilar crowding/subsegmental atelectasis Electronically Signed: Moose Rodriguez MD at 19:43 EDT , Service support ,
[2019-08-31] MEDS: Acetaminophen 325 MG Tablet 650 MG PO (22:45)
--- NOTE | 2019-08-31 23:23 | NURSING ---
Pt up ambulating around full unit multiple times tonight and utilizing incentive spirometer while awake.
[2019-09-01 02:25] VITALS: BP 126/72; PULSE 76; RESP 16; TEMP 36.7; O2SAT 97
[2019-09-01] MEDS: HYDROcodone Bitartrate/Apap 5/325 Tablet PO ×2 (02:36→07:41)
[2019-09-01 05:35] VITALS: BP 106/52; PULSE 62; RESP 16; TEMP 36.8; O2SAT 93
--- NOTE | 2019-09-01 06:13 | PCM.PN.SRG ---
Subjective: Good progress, pt thinks phenergan had given her the issues last night - Physical Exam Lungs: Clear to auscultation Abdomen: Bowel Sounds Present - appropriately tender, Soft Vital Signs Temp Pulse Resp BP Pulse Ox 98.2 F 62 16 106/52 L 93 09/01/19 05:35 09/01/19 05:35 09/01/19 05:35 09/01/19 05:35 09/01/19 05:35 Oxygen Flow Rate (L/min) 2 Oxygen Delivery Method Room Air Weight: 266 lb Body Mass Index (BMI) 42.3 Intake and Output for Last 24 Hours 08/30/19 08/31/19 09/01/19 23:59 23:59 23:59 Intake Total 837.83 / 837.83 360 / 360 Output Total 300 / 300 200 / 200 Balance 537.83 / 537.83 160 / 160 Laboratory Tests Past 24 Hrs 08/31/19 09:28 Urine Test Negative Medical Necessity - Tobacco Use Smoking Status: Never smoker Tobacco Use: Non-smoker Assessment/Plan All Active Problems (Last Updated 08/15/19 @ 08:56 by Manuela Ibarra) Cholelithiasis with chronic cholecystitis (Acute) Acute asthma flare (Acute) Acute bronchitis (Acute) Dyspnea (Acute) Secondary pulmonary arterial hypertension (Acute) CVA (cerebral vascular accident) (Acute) Tingling of left arm and left side of face (Resolved) ready for discharge
[2019-09-01 08:15] VITALS: BP 136/75; PULSE 69; RESP 16; TEMP 36.9; O2SAT 96
== END 2019-09-01 06:15 | disposition home or self-care (01) ==
LOC: SDC 18:14 → PCU 18:16
PROVIDERS: Anesthesiology; Admitting Provider Family Medicine; Family Provider Family Medicine; PCP Family Medicine; Referring Provider Surgery; Visit Provider Surgery
PROC: (CPT 47610; principal; 2019-08-31 10:50)
DX: K80.10 Calculus of gallbladder with chronic cholecystitis without obstruction (principal); I27.21 Secondary pulmonary arterial hypertension; K21.9 Gastro-esophageal reflux disease without esophagitis; J45.909 Unspecified asthma, uncomplicated; I10 Essential (primary) hypertension; E66.9 Obesity, unspecified; Z68.41 Body mass index [BMI] 40.0-44.9, adult; Z71.3 Dietary counseling and surveillance; Z79.899 Other long term (current) drug therapy; Z79.82 Long term (current) use of aspirin; R47.81 Slurred speech
CPT/HCPCS: 47563; 71046; 74300; 76000; 81025; 88304; 93005; 94640; 99218; J7120; G0378; G0379; J2405

== ENCOUNTER → 2019-10-12 14:27 | Outpatient (CLI) | payer OTHER, SELFPAY ==
[2019-08-31 18:25] VITALS: BMI 42.3
--- NOTE | 2019-10-12 14:30 | BI_ITS ---
MAMMOGRAPHY - BILATERAL SCREENING REASON FOR EXAM: Female, 49 years old. Routine annual screening examination. PERTINENT HISTORY: Non-contributory. TECHNIQUE: Digital bilateral breast isaiah (3D mammographic acquisition) in the CC and MLO projections. 2-D mediolateral oblique (MLO) and craniocaudad (CC) views of both breasts were obtained. CAD: Full Field Digital Mammography with Computer Added Detection was performed. COMPARISON: Comparison is made with prior study dated February 28, 2018 and February 03, 2016. FINDINGS: Breast Composition: There are scattered areas of fibroglandular density. There are no dominant masses or suspicious calcifications. Stable asymmetry of breast tissue where more breast tissue is seen in the deep upper lateral portion of the right breast as compared to the left side. No other significant abnormalities are identified. There has been no significant change since the prior study. BI/SCREEN MAMM (CAD) W/ISAIAH BILAT IMPRESSION: Stable bilateral screening mammogram. Yearly follow-up mammogram recommended. (A) ASSESSMENT CATEGORY: BIRADS Category 2: Benign. A letter regarding these results will be sent to the patient by the facility within 30 days. Approximately 10% of breast cancers are not detected by mammography. A normal mammogram should not delay biopsy of a clinically suspicious abnormality. [id number] Electronically Signed: Tobias Magaña, at 15:42 EST , Service support ,
== END ==
PROVIDERS: Family Provider Family Medicine; PCP Family Medicine; Referring Provider Family Medicine; Visit Provider Family Medicine
DX: Z12.31 Encounter for screening mammogram for malignant neoplasm of breast (principal)
CPT/HCPCS: 77063; 77067

== ENCOUNTER → 2019-10-29 17:06 | Outpatient (CLI) | payer OTHER, SELFPAY ==
[2019-08-31 18:25] VITALS: BMI 42.3
--- NOTE | 2019-10-29 16:46 | RAD_ITS ---
HISTORY: left anterior rib pain s/p fall one week ago COMPARISON: 08/31/2019 chest radiographs TECHNIQUE: Rib series including PA chest and 2 views of the left ribs, 5 radiographic images FINDINGS: Mildly displaced, acute fracture of the left anterolateral fourth rib. No consolidation, pleural effusion or pneumothorax. Acute rib fractures can be difficult to visualize radiographically. Follow-up as clinically warranted. RAD/Ribs Uni Min 3V w/PA Chest IMPRESSION: Acute left fourth rib fracture. at 0746 Reported and signed by: Kaycee Hall MD Electronically Signed: Kaycee Hall MD at 7:46 EST Tel , Service support ,
--- NOTE | 2019-10-29 16:46 | RAD_ITS ---
STUDY: X-RAY - LEFT SHOULDER REASON FOR EXAM: Female, 49 years old. Trauma TECHNIQUE: 4 view(s) of the shoulder. COMPARISON: None. FINDINGS: Normal glenohumeral articulation. Normal acromioclavicular joint. Normal acromion. Normal humeral head and visualized proximal humerus. The soft tissue structures are unremarkable. Normal visualized pulmonary apex. RAD/Shoulder min 2 Views IMPRESSION: Normal x-ray examination of the shoulder. Electronically Signed: Jeffery Smith, at 17:13 EST Tel , Service support ,
== END ==
PROVIDERS: Family Provider Family Medicine; PCP Family Medicine; Referring Provider Family Medicine; Visit Provider Family Medicine
DX: R07.81 Pleurodynia (principal); M25.512 Pain in left shoulder
CPT/HCPCS: 71101; 73030

== ENCOUNTER → 2019-11-20 09:28 | Outpatient (CLI) | payer OTHER, SELFPAY ==
[2019-08-31 18:25] VITALS: BMI 42.3
--- NOTE | 2019-11-20 09:55 | CT_ITS ---
The STUDY: CTA HEAD AND NECK WITH CONTRAST REASON FOR EXAM: Female, 49 years old. VERTIGO X ONE SPELL WHEN TURNING HEAD. Prior CVA RADIATION DOSAGE (If Supplied By Facility): CTDIvol = ( 34.44 ) mGy, DLP = ( 1585.82 ) mGycm TECHNIQUE: CT angiography was performed with a multi-detector CT scanner. Data acquisition was obtained from the skull base through the vertex following intravenous administration of Isovue 300 100ml. MIP images were reconstructed from the axial data set. Post-processing of the angiographic images was performed, with multiplanar reformation and 3D reconstruction. Individualized dose optimization techniques were used for this CT. COMPARISON: No relevant priors. FINDINGS: Normal bilateral petrous carotid arteries. Normal right cavernous carotid artery with a normal supraclinoid bifurcation. Normal left cavernous carotid artery with a normal supraclinoid bifurcation. Normal right A1 segments of the anterior cerebral artery. Normal left A1 segments of the anterior cerebral artery. Normal intact anterior communicating artery (ACOM). Normal bilateral A2 segments of the anterior cerebral arteries. Normal right M1 and M2 segments of the middle cerebral arteries, with a normal M1 bifurcation. Normal left M1 and M2 segments of the middle cerebral arteries, with a normal M1 bifurcation. Normal right posterior communicating artery (PCOM). Normal left posterior communicating artery (PCOM). Normal bilateral vertebral arteries. Normal basilar artery with a normal basilar bifurcation. The visualized bilateral superior cerebellar (SCA) arteries are normal. Normal bilateral P1, P2 and visualized P3 segments of the posterior cerebral arteries. There is no demonstrated aneurysm of the morongo of Esquivel. There is no demonstrated abnormality of the visualized brain. AORTIC ARCH: Normal visualized aortic arch. Normal origins of the brachiocephalic, left common carotid, and left subclavian arteries. RIGHT CAROTID ARTERIES: Normal right common carotid artery (CCA). There is mild atherosclerotic plaque formation with minimal narrowing of the right carotid bulb. Normal origin of the right internal carotid (ICA) artery without a hemodynamically significant stenosis. Normal visualized cervical portion of the right internal carotid artery. Normal origin of the right external carotid artery (ECA). LEFT CAROTID ARTERIES: Normal left common carotid artery (CCA). There is mild atherosclerotic plaque formation with minimal narrowing of the left carotid bulb. Normal origin of the left internal carotid (ICA) artery without a hemodynamically significant stenosis. Normal visualized cervical portion of the left internal carotid artery. Normal origin of the left external carotid artery (ECA). VERTEBRAL ARTERIES: Normal bilateral vertebral arteries. CT/CTA Head AND Neck W/ Contrast IMPRESSION: No significant stenosis of the carotid and vertebral arteries. Electronically Signed: Anjali Prescott, at 13:46 EST Tel , Service support ,
--- NOTE | 2019-11-20 10:31 | RAD_ITS ---
HISTORY: FOLLOW UP 4TH RIB FX EXAMINATION/TECHNIQUE: XR Ribs Unilateral W/ PA Chest Min 3 Views: Left COMPARISON: October 29, 2019 FINDINGS: LINES/DEVICES: None. LUNGS: No consolidation, edema or effusion. No pneumothorax. MEDIASTINUM AND CARDIOVASCULAR STRUCTURES: Cardiac silhouette not enlarged. Central airways and mediastinal contour are unremarkable. RIBS AND OSSEOUS STRUCTURES: The anterior left fourth rib fracture is displaced by 1 cortex width. It is not yet healed. The degree of displacement is the same RAD/Ribs Uni Min 3V w/PA Chest IMPRESSION: Anterior lateral slightly displaced left fourth rib fracture has not yet healed. Alignment is similar. No pneumothorax. at 0525 Reported and signed by: Simon Gonzáles MD Electronically Signed: Simon Gonzáles MD at 5:24 EST Tel , Service support ,
== END ==
PROVIDERS: Family Provider Family Medicine; PCP Family Medicine; Referring Provider Clinical Nurse Specialist Acute Care; Visit Provider Clinical Nurse Specialist Acute Care
DX: R42 Dizziness and giddiness (principal); S22.32XA Fracture of one rib, left side, initial encounter for closed fracture
CPT/HCPCS: 70496; 70498; 71101; Q9967

== ENCOUNTER → 2020-02-18 | Outpatient (CLI) | payer OTHER, SELFPAY ==
[2020-02-18 08:12] VITALS: BMI 42.3
[2020-02-22 23:25] LABS: HPV APTIMA, High Risk Negative (Negative)
== END | disposition home or self-care (01) ==
LOC: LABSPEC 14:25
PROVIDERS: PCP Family Medicine; Referring Provider Nurse Practitioner Women's Health; Visit Provider Nurse Practitioner Women's Health
DX: Z12.4 Encounter for screening for malignant neoplasm of cervix (principal)
CPT/HCPCS: 87624; 88175; G0145

== ENCOUNTER → 2020-03-16 13:02 | Outpatient (CLI) | payer OTHER, SELFPAY ==
[2020-03-16 10:19] VITALS: BMI 44.3
--- NOTE | 2020-03-16 13:04 | US_ITS ---
STUDY: ULTRASOUND OF THE FEMALE PELVIS - COMPLETE REASON FOR EXAM: Female, 49 years old. IUD PLACEMENT LMP: March 02, 2020. TECHNIQUE: Transabdominal TECHNICAL QUALITY: Adequate. COMPARISON: None. FINDINGS: The uterus is anteverted and is tilted to the right side of the pelvis. The uterus measures 12.2 cm x 8.17 x 5.6 cm. Normal uterine cervix. The endometrium measures 5 mm in thickness, and is hyperechoic. There is no demonstrated endometrial mass. There is a 3.7 cm x 3.4 cm x 2.8 cm fibroid in the left side of the uterine fundus. I.U.D. - The patient does have an I.U.D. the IUD is seen within the fundal portion of the endometrium. The right ovary is visualized. The right ovary measures 3.1 cm x 2.6 cm x 2.2 cm. There is no right ovarian cyst or ovarian mass. There is no visualized right adnexal mass or complex lesion. There is normal arterial and normal venous vascularity. The left ovary is non-visualized. There is no fluid in the cul-de-sac. The pre void volume of the bladder was 464 ml. Polycystic ovary disease: No. US/Pelvic (Non ) IMPRESSION: 3.7 cm x 3.4 cm x 2.8 cm fibroid in the left side of the uterine fundus. The IUD is seen within the endometrium in the fundal portion of uterus. Electronically Signed: Tobias Magaña, at 15:32 EDT , Service support ,
== END ==
PROVIDERS: PCP Family Medicine; Referring Provider Obstetrics & Gynecology; Visit Provider Obstetrics & Gynecology
DX: T83.9XXA Unspecified complication of genitourinary prosthetic device, implant and graft, initial encounter (principal)
CPT/HCPCS: 76856

== ENCOUNTER 2020-04-12 16:24 | Observation (INO) | payer OTHER, SELFPAY ==
[2020-03-16 10:19] VITALS: BMI 44.3
[2020-04-06 13:02] VITALS: BMI 44.3
[2020-04-08 11:06] LABS: Hematocrit 38.8 % (37-47); Mean Corp Hgb Conc 33.5 g/dL (32-36); Mean Corpuscular Hgb 30.3 pg (27.0-32.0); Mean Corpuscular Volume 90.4 fL (81-99); Platelet Count 154 K/mm3 (150-450); RBC Distribution Width CV 12.9 % (11.6-14.6); RBC Distribution Width SD 41.9 fl (35.1-43.9); Red Blood Count 4.29 M/mm3 (4.2-5.4); White Blood Count 7.6 K/mm3 (4.4-11.0)
[2020-04-08 11:37] LABS: Anion Gap 5 (5-15); BUN 17 mg/dL (7-18); BUN/Creat Ratio 24.5 RATIO (10-20); Chloride 109 mmol/L (98-107); EST Glomerular Filtration Rate 96 mL/min (>60); Est Glom Filt Rate - Afr Amer 116 mL/min (>60); Glucose 107 mg/dL (74-106); Sodium Level 140 mmol/L (136-145)
[2020-04-12] VITALS (20 sets, daily range): BP systolic 112–153; BP diastolic 49–91; PULSE 63–81; RESP 16–18; TEMP 35.9–36.7; O2SAT 85–99; BMI 44.0
[2020-04-12 07:13] LABS: Internal QC Validated? YES +Cl - CLEAR BKGD; Pregnancy, Urine Negative Negative
[2020-04-12 07:16] LABS: Bedside Glucose 94 mg/dL (70-110)
--- NOTE | 2020-04-12 07:22 | PCM.HPOB.BLA ---
- Problem List (1) Abnormal uterine bleeding Status: Acute Comment: persistent despite IUD and increasing in amount, due to fibroids (2) Fibroid uterus Status: Acute Comment: 12 cm uterus with 3.5cm fibroid. plan [facility] cysto History and Physical Date of Admission: 04/12/20 Intake Vital Signs 03/16/20 Height 5 ft 6.5 in 03/16/20 Weight: 279 lb 03/16/20 BMI 44.3 03/16/20 BP 124/90 H Intake Visit Reasons: IUD remove/insert, not finding strings on 03/02 Chief Complaint: IUD removal and insertion Petroleum Analyst Required: No Is patient in pain?: No Allergies bacitracin [From Neosporin ([id number])] Adverse Reaction (Verified 03/16/20 10:19) Rash Medications Aspirin [Aspirin, Baby] 81 mg PO DAILY@0800 tab.chew 06/30/18 [Rx Confirmed 03/16/20] albuterol sulfate 90 mcg/actuation aerosol inhaler 1 puff INHALATION Q6H PRN #6.7 g 11/28/18 [Rx Confirmed 03/16/20] atorvastatin 20 mg tablet 20 mg PO DAILY #30 tab 09/17/19 [Rx Confirmed 03/16/20] losartan 100 mg tablet 100 mg PO DAILY #30 tab 12/24/19 [Rx Confirmed 03/16/20] levonorgestrel 20.1 mcg/24 hrs (6 yrs) 52 mg intrauterine device 1 device INTRAUTERINE ONCE 03/02/20 [History Confirmed 03/16/20] Is last menstrual period known: No Post menopausal: No Patient : No : No PFSH PFSH Medical History Cholelithiasis with chronic cholecystitis (Acute) Secondary pulmonary arterial hypertension (Acute) CVA (cerebral vascular accident) (Acute) Asthma (Acute) Gallstones (Acute) GERD (gastroesophageal reflux disease) (Chronic) HTN (hypertension) (Chronic) Obesity (Chronic) Surgical History H/O LEEP (Acute ~1996) History of cholecystectomy (Acute ~08/2019) History of use of contraceptive intrauterine device (IUD) (Acute) History of vein stripping (Acute) Status post panniculectomy (Acute) history of scalp avulsion (Acute) Family History Father Heart disease Myocardial infarction Hypertension Mother Hypertension Grandfather Cancer lung Social History (Updated 03/16/20 @ 10:[address] 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 Date Name GA/Weeks Outcome Route Bth Weight Infant Gen Labor Lgth Anesthesia Del Locatn Provider FOB Unknown [place] 2003 HPI Details: TONEY MCDONALD is a 49 year old who presents for AUB and uterine fibroids, lost IUD strings. uterus iss enlarged at 12 cm with a 3.5 cm fibroids and others present. ROS Const Constitutional: Reports system reviewed and no additional complaints, except as docu; denies chills, fever(s), weight gain or weight loss GI GI: Reports as per HPI; denies abdominal pain, bloating, constipation, cramping, nausea or vomiting : Reports as per HPI; denies urinary frequency, urinary incontinence, urinary urgency, vaginal discharge or vaginal dryness all others reviewed and negative Exam Const General: cooperative, healthy appearing, comfortable, well developed Orientation: alert HENPA Head: normal to inspection Resp Effort & Inspection: normal respiratory effort GI Inspection: normal to inspection, non-distended Palpation: soft, no hepatosplenomegaly, no guarding External Female Exam: normal external appearance, normal appearance of the urethra Urethra: normal appearance of the urethra Speculum Exam - Vagina: normal appearance of the vagina, normal vaginal discharge, no lesions Speculum Exam - Cervix: normal appearance of the cervix, nontender Bimanual Exam- Vagina & Uterus: normal bimanual exam, uterine size normal, uterine shape normal, No cervical tenderness, uterine mobility normal, uterine consistency normal, uterus non-tender Bimanual Exam- Adnexa, other: normal adnexae, no adnexal masses Assessment & Plan Problems 1. Encounter for management of intrauterine contraceptive device (IUD), unspecified IUD management type Z30.431 IUD- no PA. Reference number [id number]. 2. IUD complication T83.9XXA Abnormal Uterine Bleeding, Uterine Fibroids discussed options with patient and plan proceeding with hysterectomy. plan [facility] cysto. After discussing the patient's diagnosis and treatment plan options, patient wishes to proceed with surgical management. I have discussed with the patient the risks, benefits, and alternatives of the procedure which include but are not limited to risks of anesthesia, bleeding, infection, possible damage to bowel, bladder, or surrounding vasculature which could lead to additional surgery to evaluate any complications. Patient agrees to procedure and wishes to proceed. ACOG/uptodate references given for additional information regarding procedure. Orders Orders: Pelvic (Non ) Today T83.9XXA Coding Level of Care Code Off vis,est,level 2 Diagnoses Encounter for management of intrauterine contraceptive device (IUD), unspecified IUD management type Z30.431 ??Contraceptive encounter type: IUD management ??IUD management: unspecified IUD complication T83.9XXA UPDATE- I have seen the patient and performed any clinically relevant updates to the history and physical exam. Katharine Bai MD
[2020-04-12 07:24] LABS: Magnesium 2.3 mg/dL (1.6-2.6)
--- NOTE | 2020-04-12 07:26 | OP.PCM_ITS ---
Problem List (1) Abnormal uterine bleeding Status: Acute Comment: persistent despite IUD and increasing in amount, due to fibroids (2) Fibroid uterus Status: Acute Comment: 12 cm uterus with 3.5cm fibroid. plan LAVH BS cysto Report of Operation Date of Procedure: 04/12/20 Pre-Operative Diagnosis: AUB fibroid uterus Post-Operative Diagnosis: same Surgery/Procedure Performed:: lavh bs cysto Description of Surgical Findings:: Anterior scar tissue possible old endometriosis junior financial analyst: Kaley Brown Type of Anesthesia:: General Special Medications: none Specimen's removed: uterus tubes Drains: none Estimated Blood Loss (mL): 100 Fluids Replaced: crystalloid Description of Procedure: Patient received preoperative antibiotics and SCDs were on preoperatively. Patient was taken back to the operating room and placed in the dorsal lithotomy position. General anesthesia was induced and patient was prepped and draped in normal sterile fashion. Uterine manipulator was placed inside the uterus and Dunbar catheter placed in the bladder. The umbilicus was grasped with towel clamps and an intraumbilical incision was made after injecting with quarter percent Marcaine and a Veress needle entered into the abdomen confirmed to be intra-abdominal with a low opening pressure. Abdomen was insufflated with CO2 gas and the Veress needle removed and the 5 mm trocar was placed under direct visualization without complication. Right and left lower quadrants were transilluminated and injected with quarter percent Marcaine and 5 mm ports placed under direct visualization. Pelvis was well visualized see operative findings for additional information. Bilateral fallopian tubes were identified and transected with the LigaSure device across the mesosalpinx to the level of the utero-ovarian ligament which was also transected with the LigaSure device. The broad ligament was opened up by transecting the round ligament bilaterally and skeletonizing the uterine vessels bilaterally and creating a bladder flap using the LigaSure device. The uterine arteries were transected bilaterally with good visualization of the bladder and the ureters were seen to be inferior lateral to the operative area. Attention was then paid to the vaginal portion of the procedure and the cervix was grasped with Leslie clamps and circumferentially injected with dilute vasopressin. A circumferential incision was made and the vaginal mucosa was mobilized off posteriorly and the cul-de-sac entered into sharply and a longneck speculum placed. The anterior cul-de-sac was then identified and entered into sharply. The uterosacral ligaments were clamped cut and suture ligated with 0 Monocryl bilaterally followed by the cardinal ligaments which were clamped cut and suture ligated bilaterally with 0 Monocryl. The uterus serially descended and was removed without difficulty with minimal morcellation. Pelvic sidewall pedicles were checked and noted to have excellent hemostasis. The vaginal mucosa was reapproximated incorporating the posterior peritoneum. This was reapproximated using 0 Vicryl [id number] sutures. Excellent hemostasis was noted. The cystoscopy was then performed and bilateral ureteral strong spray was noted and the bladder was noted to have no abnormality or lesions seen. Dunbar catheter was replaced and then attention paid to the abdominal portion of the procedure again. The pelvis and cul-de-sac was well visualized and no significant active bleeding noted but some raw areas were seen on the peritoneum and therefore Rosas was applied. Pressure was taken down and the areas visualized and noted of excellent hemostasis. All ports were removed under direct visualization without complication and the abdomen was desufflated of air. The instruments removed from the abdomen and the vagina vaginal sweep was negative. Port sites on the abdomen were closed with 4-0 Monocryl interrupted sutures and Steri's and windows were applied. She was awoken and taken recovery in stable condition. Grafts/Implants Used: none - Complications none - Admit VTE Documentation VTE Present on Admission: No VTE Mechan Device Prophylaxis: SCD's Multi Select Codes - Urinary/Genital Urinary/Genital CPT Codes: 59054 Cystoscopy, 50883 LAVH+BS/O >250gr Uterus
--- NOTE | 2020-04-12 07:28 | DCINST_ITS ---
Discharge Diet: No Restrictions Discharge Activity: Return to Normal Activity, May Not Drive, May Shower May resume sexual activity in: 6-8 weeks Call your doctor if your incision/area has: Continuous Slow Oozing, Sudden Increased Bleeding, Increased Pain/ Swelling, Increased Redness, Foul Smelling Discharge Call your doctor if you observe: Fever of 101 or Higher, Inability to urinate, Inability to have a bowel movement, Using more than one pad per hour Allergies/Adverse Reactions: Allergies bacitracin [From Neosporin ([id number])] Adverse Reaction (Verified 04/12/20 07:13) Rash Medications to take at Discharge Aspirin [Aspirin, Baby] 81 mg PO DAILY@0800 tab.chew 06/30/18 albuterol sulfate 90 mcg/actuation aerosol inhaler 1 puff INHALATION Q6H PRN #6.7 g 11/28/18 atorvastatin 20 mg tablet 20 mg PO DAILY #30 tab 09/17/19 losartan 100 mg tablet 100 mg PO DAILY #30 tab 12/24/19 levonorgestrel 20.1 mcg/24 hrs (6 yrs) 52 mg intrauterine device 1 device INTRAUTERINE ONCE 03/02/20 Pantoprazole Sodium [Protonix] 20 mg PO PRN PRN 04/04/20 Naproxen [Naprosyn] 250 - 500 mg PO Q8H PRN PRN #30 tab 04/12/20 Oxycodone HCl/Acetaminophen [Percocet 5-325] 1 - 2 tablet PO Q6H PRN PRN 7 Days #15 tablet 04/12/20 The following prescriptions were given: Naproxen [Naprosyn] 250 - 500 mg PO Q8H PRN PRN #30 tab PRN Reason: MILD PAIN Transmission Status: Pending to [facility] Oxycodone HCl/Acetaminophen [Percocet 5-325] 1 - 2 tablet PO Q6H PRN PRN 7 Days #15 tablet PRN Reason: Pain Transmission Status: Sent to [facility] Primary Care Physician: Lakeisha Wetzel DO [Primary Care Provider] - Test Results: Test results from this visit will be discussed in further detail at your follow- up appointment, if applicable. Please Follow Up With: Katharine Bai MD - [phone]
[2020-04-12] MEDS: Acetaminophen 500 MG Tablet 1000 MG PO ×3 (07:34→23:40)
[2020-04-12] MEDS: Celecoxib 200 MG Capsule 400 MG PO (07:35)
[2020-04-12] MEDS: Phenazopyridine 95 MG Tablet 190 MG PO (07:37)
[2020-04-12] MEDS: Gabapentin 600 MG Tablet PO (07:38)
[2020-04-12] MEDS: dexAMETHasone 10 MG/ML Vial 8 MG IV (07:44)
[2020-04-12] MEDS: Scopolamine 1mg/72hr Patch 1 PATCH TRANSDERM. (07:45)
[2020-04-12] MEDS: Enoxaparin 40 MG/0.4 ML Syringe SC (07:45)
[2020-04-12] MEDS: Lactated Ringers 1,000 ML 40 ML IV (07:46)
--- NOTE | 2020-04-12 09:10 | HYST_PTH ---
PATIENT: TONEY MCDONALD LOC: MS3 U#:[id number] AGE/SX: 49/F ROOM: [facility] [place] RE04/12/[address]: Dr. Katharine Bai MD : 1970 BED: 1 DIS: 04/13/2020 SPEC #: [id number] RECD: 04/12/20 12:29 STATUS: BRINDA RICHA #: [id number] GENO: 04/12/20 09:[address]: Katharine Bai DEPT: SURGICAL PATHOLOGY RECD BY: Orestes Naqvi ENTERED: 04/13/20 09:09 SP TYPE: HYSTERECT OTHR DR: Dr. Lakeisha Wetzel DO Tissues: Uterus, NOS Procedures: Surgery Specimen Level V HEADER OPERATION: MOIRA LEUNG, bilateral salpingectomy, cysto PRE-OP DIAGNOSIS: IUD Z30.431 TISSUE SUBMITTED: Uterus, cervix, bilateral fallopian tubes MICROSCOPIC DIAGNOSIS Uterus, hysterectomy: Cervix - minimal chronic inflammation. Endometrium - weakly proliferative endometrium. Myometrium - leiomyomas and adenomyosis. Right fallopian tube - no pathologic change. Left fallopian tube - no pathologic change. AM:yuko 04/14/20 COMMENT A T-shaped unremarkable IUD is present free in the endometrial cavity with no migration or embedment into myometrium. MICROSCOPIC DESCRIPTION Slides are reviewed. GROSS DESCRIPTION Received in fixative is one container labeled with the patient's name and designated uterus, cervix and bilateral fallopian tubes. The specimen consists of a previously, partially opened anterior posterior hysterectomy specimen consisting of uterus with cervix and attached bilateral fallopian tubes. The uterus with cervix weighs 229 gm and measures 10 x 6 x 5 cm. The serosal surface is chavez, glistening. Multiple subserosal nodules are noted. The ectocervix appears unremarkable. The endocervical canal measures 5 cm in length and the endocervical mucosa is unremarkable. The triangle endometrial cavity measures 5 cm in length and 4 cm in width. A white T-shaped intrauterine device is present in the endometrial cavity. It is well positioned. The horizontal and vertical portion of the IUD measures 3 cm in length. A two-prong black suture is present which measures 4 cm in length. The endometrium is without any mass lesion and measures 0.1 cm in thickness. Sectioning of the uterine wall reveal multiple intramural and subserosal nodular masses. The largest mass measures 3.5 cm in greatest dimension. Sections of these masses reveal chavez whorled cut surfaces without areas of hemorrhage, necrosis or cystic degeneration. The uninvolved uterine wall measures up to 3.5 cm in thickness. The right fallopian tube measures 6.5 cm in length and 0.6 cm in diameter. The fimbrial end is identified. Sections reveal unremarkable cut surfaces. The left fallopian tube is similar appearance to right and measures 7 cm in length and 0.6 cm in diameter. The fimbrial end is identified. Sections reveal unremarkable cut surfaces. Also present in the container is a detached piece of soft tissue, most likely a portion of uterine wall measuring 2 x 2.5 x 1.5 cm. Sections reveal unremarkable cut surfaces. Home Care Music Therapist sections are submitted in 12 cassettes as follows: 1 - anterior cervix, 2 - posterior cervix, 3 & 4 - anterior uterine wall, 5 & 6 - posterior uterine wall, 7 - largest nodular mass, 8 - second largest nodular mass, 9 & 10 - smaller nodular masses, 11 - right fallopian tube, 12 - left fallopian tube. / TRENT:yuko 04/13/20 TC:1 CPT: 66603
[2020-04-12] MEDS: Cefazolin 2 GM in 0.9% Normal Saline 100 ML IV (09:11)
[2020-04-12] MEDS: Bupivacaine 0.25% 30 ML Vial (09:11)
[2020-04-12] MEDS: Lactated Ringers 1,000 ML 70 ML IV ×2 (10:10→21:27)
[2020-04-12] MEDS: Vasopressin 20 UNITS/ML Vial (10:40)
[2020-04-12] MEDS: Ondansetron 4 MG/2 ML Vial IV (11:45)
[2020-04-12] MEDS: Ketorolac 30 MG/ML Syringe IV ×3 (12:53→23:40)
[2020-04-12 14:26] LABS: Hematocrit 39.3 % (37-47); Hemoglobin 12.7 g/dL (12.0-15.0); Mean Corp Hgb Conc 32.3 g/dL (32-36); Mean Corpuscular Hgb 29.7 pg (27.0-32.0); Mean Platelet Vol. 10.5 fl (6.2-12.0); Platelet Count 183 K/mm3 (150-450); RBC Distribution Width CV 12.8 % (11.6-14.6); RBC Distribution Width SD 42.9 fl (35.1-43.9); Red Blood Count 4.27 M/mm3 (4.2-5.4); White Blood Count 12.4 K/mm3 (4.4-11.0)
[2020-04-12] MEDS: oxyCODONE 5 MG Tablet PO (14:26)
[2020-04-12 14:39] LABS: Anion Gap 9 (5-15); BUN 16 mg/dL (7-18); BUN/Creat Ratio 18.3 RATIO (10-20); Calcium,Total 8.4 mg/dL (8.5-10.1); Chloride 108 mmol/L (98-107); Creatinine, Serum 0.87 mg/dL (0.55-1.02); EST Glomerular Filtration Rate 74 mL/min (>60); Est Glom Filt Rate - Afr Amer 89 mL/min (>60); Estimated Creatinine Clearance 74.84 ml/min; Glucose 177 mg/dL (74-106); Potassium 4.3 mmol/L (3.5-5.1); Sodium Level 139 mmol/L (136-145)
[2020-04-12] MEDS: Ondansetron ODT 4 MG Tablet PO (16:00)
[2020-04-12] MEDS: Docusate Sodium 100 MG Capsule PO (21:27)
[2020-04-13] MEDS: oxyCODONE 5 MG Tablet PO ×2 (02:27→09:41)
[2020-04-13 03:30] VITALS: BP 121/61; PULSE 74; RESP 18; TEMP 36.7; O2SAT 98
[2020-04-13 05:00] VITALS: O2SAT 97
[2020-04-13] MEDS: Ketorolac 30 MG/ML Syringe IV (05:36)
[2020-04-13] MEDS: Acetaminophen 500 MG Tablet 1000 MG PO (05:36)
[2020-04-13 06:06] LABS: Absolute Lymphocyte Count 1.16 X10^3/uL (0.83-4.51); Absolute Neutrophil Count 11.3 X10^3/uL (2.0-7.7); Basophil# 0.01 X10^3/uL; Basophil% 0.1 % (0-1); Hematocrit 36.1 % (37-47); Hemoglobin 11.9 g/dL (12.0-15.0); Lymphocyte # 1.16 X10^3/ul (4.0); Lymphocyte % 8.9 % (19-41); Mean Corpuscular Hgb 30.2 pg (27.0-32.0); Mean Corpuscular Volume 91.6 fL (81-99); Mean Platelet Vol. 11.1 fl (6.2-12.0); Monocyte# 0.47 X10^3/uL; Monocyte% 3.6 % (0-10); NRBC Flagged by Analyzer 0 % (0-5); Neutrophil % 87.1 % (47-70); Platelet Count 181 K/mm3 (150-450); RBC Distribution Width CV 12.7 % (11.6-14.6); Red Blood Count 3.94 M/mm3 (4.2-5.4)
[2020-04-13 06:25] LABS: Anion Gap 5 (5-15); BUN 14 mg/dL (7-18); BUN/Creat Ratio 16.1 RATIO (10-20); Chloride 108 mmol/L (98-107); Creatinine, Serum 0.87 mg/dL (0.55-1.02); EST Glomerular Filtration Rate 74 mL/min (>60); Est Glom Filt Rate - Afr Amer 89 mL/min (>60); Estimated Creatinine Clearance 74.84 ml/min; Glucose 149 mg/dL (74-106); Potassium 4.5 mmol/L (3.5-5.1); Sodium Level 139 mmol/L (136-145)
[2020-04-13 09:04] VITALS: BP 110/56; PULSE 73; RESP 16; TEMP 37.1; O2SAT 98
[2020-04-13] MEDS: Docusate Sodium 100 MG Capsule PO (09:21)
== END 2020-04-13 10:17 | disposition home or self-care (01) ==
LOC: SDC 04-13 09:18 → MS3 04-13 09:18
PROVIDERS: Anesthesiology; Admitting Provider Obstetrics & Gynecology; PCP Family Medicine; Referring Provider Obstetrics & Gynecology; Visit Provider Obstetrics & Gynecology
PROC: 0UT9FZZ Resection of Uterus, Via Natural or Artificial Opening With Percutaneous Endoscopic Assistance (ICD-10-PCS; CPT 58552; principal; 2020-04-12 08:45)
DX: T83.32XA Displacement of intrauterine contraceptive device, initial encounter (principal); Y76.8 Miscellaneous obstetric and gynecological devices associated with adverse incidents, not elsewhere classified; Y83.9 Surgical procedure, unspecified as the cause of abnormal reaction of the patient, or of later complication, without mention of misadventure at the time of the procedure; D25.9 Leiomyoma of uterus, unspecified; K21.9 Gastro-esophageal reflux disease without esophagitis; I10 Essential (primary) hypertension; E66.9 Obesity, unspecified; Z68.41 Body mass index [BMI] 40.0-44.9, adult; I27.21 Secondary pulmonary arterial hypertension; Z86.73 Personal history of transient ischemic attack (TIA), and cerebral infarction without residual deficits; J45.909 Unspecified asthma, uncomplicated; Z79.899 Other long term (current) drug therapy; Z79.82 Long term (current) use of aspirin; E78.00 Pure hypercholesterolemia, unspecified
CPT/HCPCS: 00940; 58552; 36415; 80048; 81025; 82962; 83735; 85025; 85027; 86850; 86900; 86901; 87635; 88307; 94762; 96374; 96376; 99218; 99251; G2023; J7120; G0378; G0379; G0463; J2405; U0002

== ENCOUNTER → 2020-11-24 13:24 | Outpatient (CLI) | payer OTHER, SELFPAY ==
[2020-08-10 10:50] VITALS: BMI 44.3
--- NOTE | 2020-11-24 13:30 | RAD_ITS ---
STUDY: X-RAY - RIGHT FOOT CLINICAL: Female, 50 years old. right foot pain TECHNIQUE: 3 view(s) of the foot. COMPARISON: None. FINDINGS: Normal talus, calcaneus, and tarsal bones. Moderate size plantar calcaneal enthesophyte. Normal visualized subtalar, talonavicular, calcaneocuboid, tarsal and tarsometatarsal articulations. Normal metatarsi. Normal metatarsophalangeal joint of the great toe. Normal tibial and fibular sesamoid bones. Normal interphalangeal joint of the great toe. Normal phalanges of the great toe. Normal second through fifth metatarsophalangeal joints. Normal interphalangeal joints and phalanges of the lesser toes. The soft tissue structures are unremarkable. RAD/Foot min 3 Views IMPRESSION: Normal x-ray examination of the foot. Electronically Signed: Chino Waldrop MD at 7:04 EST Tel , Service support ,
== END ==
PROVIDERS: PCP Family Medicine; Referring Provider Family Medicine; Visit Provider Family Medicine
DX: M79.671 Pain in right foot (principal)
CPT/HCPCS: 73630

== ENCOUNTER → 2021-03-15 07:04 | Outpatient (CLI) | payer OTHER, SELFPAY ==
[2020-08-10 10:50] VITALS: BMI 44.3
--- NOTE | 2021-03-15 07:14 | MRI_ITS ---
STUDY: MRI RIGHT ANKLE WITHOUT CONTRAST REASON FOR EXAM: Right heel pain, aching in Achilles tendon. TECHNIQUE: Standardized fat and water weighted pulse sequences were obtained in all 3 orthogonal planes. COMPARISON: Radiographs of the right foot 11/24/2020. FINDINGS: There is mild edema in the medial and lateral subcutis adipose space. There is a very small volume of fluid in the submalleolar posterior tibialis tendon sheath (T2 axial images 14, 15, 17-21). The posterior tibialis tendon is morphologically normal. There is bone edema in the medial navicular (inversion recovery sagittal images 6, 7). Normal flexor digitorum longus tendon. Normal flexor hallucis longus tendon. There is a longitudinal split of the perimalleolar peroneus brevis tendon (3-D axial images 101-124). Normal peroneus longus tendon. Normal tibialis anterior tendon. Normal extensor hallucis longus tendon. Normal extensor digitorum longus tendons. There is mild fusiform thickening of the Achilles tendon in the watershed zone measuring 0.7 cm in AP dimension (T1 axial images 7-14; T1 sagittal image 13) without discrete tendon tear. There is no retrocalcaneal bursitis. There is thickening and interstitial edema of the central cord of the plantar fascia (inversion recovery sagittal images 9-11). There is reactive bone edema of the posterior tuberosity of the calcaneus at the origin the plantar fascia (inversion recovery sagittal images 11-16). There is a plantar calcaneal enthesophyte. There is atrophy with partial fat replacement of the abductor digiti minimi muscle (T1 sagittal image 17). Normal distal tibiofibular syndesmotic ligamentous complex. Normal lateral ligamentous complex. Normal subtalar ligaments and sinus tarsi. Normal deltoid ligamentous complexes. Normal plantar calcaneonavicular (spring) ligament. There is a small osteochondral lesion of the posterior tibial plafond (T1 sagittal image 10) measuring 0.4 cm in AP dimension with mild associated bone edema (T2 coronal image 15) without demonstrated overlying chondral flap. Normal talar dome. Normal subtalar articulations. There is is a small talonavicular joint effusion (inversion recovery sagittal images 13, 14). Normal calcaneocuboid articulation. Normal navicular-cuneiform articulations. MRI/Lower Ext Joint Only (Routine) IMPRESSION: Plantar fasciitis with reactive bone edema of the posterior tuberosity of the calcaneus. Mild Achilles tendinosis. Longitudinal split of the peroneus brevis tendon. Small osteochondral lesion of the posterior tibial plafond. Very mild posterior tibialis tenosynovitis. Bone edema in the medial aspect of the navicular. Small talonavicular joint effusion. Atrophy of the abductor digiti minimi muscle. Electronically Signed: Jessee Singh MD at 9:10 EDT Tel , Service support ,
== END ==
PROVIDERS: PCP Family Medicine; Referring Provider Podiatrist Foot & Ankle Surgery; Visit Provider Podiatrist Foot & Ankle Surgery
DX: M76.61 Achilles tendinitis, right leg (principal); M79.671 Pain in right foot
CPT/HCPCS: 73721

== ENCOUNTER 2021-06-08 08:30 | Outpatient (RCR) | payer OTHER, SELFPAY ==
[2020-08-10 10:50] VITALS: BMI 44.3
--- NOTE | 2021-03-08 07:04 | HP.PTEVAL ---
Patient's Visit Information TONEY MCDONALD is a 50 year old F referred to Physical Therapy by Dr. Jana Chen DPM with a diagnosis of Achilles Tendonitis and Plantar Fascitis. Date of Evaluation: 03/07/21 Physical Therapist: Caitie Juares DPT - Visit Plan Frequency: 2x /Week Duration: 4 Weeks Plan: US, DN, and Manual to the achilles and plantar fascia- stretching and eccentrics. HEP Given IE: Gastroc Stretch seated with towel, soleus stretch seated with towel, eccentric heel raise x10 - Subjective Patient reports that he ended up with Right foot plantars warts--plantar fascititis--bone spur---achilles tendonitis. Has had pf for years but it comes and goes. Currently the pf is good- the heel spur and the achilles. She is using a night splint that she wears 1-2x a week. Is wearing a CAM boot intermittently as needed. She has had an injection which was about 2 months ago which did not really help. Took prednisone which helped a ton but it came right back. Wearing [employer] and [employer] at work or crocs at home- supportive flip flops- does not wear orthotics but does wears Dr. Mcmahan and is currently wearing sketchers. Tried a heel lift and it made it worse. Worst: 7-8/10 Agg: working long shifts, getting up from sitting for to long, standing Eases: ice, elevation, hot tub, rest Best: 0/10 if she is just laying there-Took a week off work which did not really help. Pain in the achilles and into the calf and bottom of the foot. Sometimes sharp and sometimes just throbbing. Juan has been like it hurts a nerve. No N/T in the toes. No problems with knee buckling or giving out. No falls. Sleep: not disturbed- 1st step in the AM is the worst. 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 Has had an x-ray and MRI is scheduled for the . PMHx: CVA (2 years ago)- Meds: Magnesium, Losartin, Lipitor, Asprin. - Objective Posture: FH, RS- can correct with verbal cues but does not maintain. Gait: antalgic- no AD or Cam in clinic today. Decrease stance on the right LE with poor heel/toe pattern and flat foot progression. HR/TR: able but reports discomfort in the achilles with both. SLS: weight shift but unable to SLS without LOB and reports pain with increased stance on the right LE. Observation: increased edema on the achilles tendon medial and lateral. Palpation: tender to touch from mid calf down to the insertion of the achilles and into the heel. Increased crepetis in the plantar fascia medial>lateral. ROM: DF: neutral, PF: 60 degrees, Inv: 30 degrees Ever: 20 degrees, Knee/Hip: WFL. Flex: HS: moderate, Gastroc: severe Soleus: moderate. Strength: Hip: 4/5, Knee: 5/5, Ankle: 4+/5 throughout. Special Test: Eccentric Heel Raise: diminished compared to left and reports discomfort 2-3/10 pain - Goals Goal 1:: Patient will be I with HEP and progression Goal Time Frame: 4-6 Weeks Goal 2:: Patient will ambulate >300 feet with a normalized gait pattern Goal Time Frame: 4-6 Weeks Goal 3:: Patient will SLS for 15 sec without LOB Goal Time Frame: 4-6 Weeks Goal 4:: Patient will report no more than 2/10 pain for 1 week Goal Time Frame: 4-6 Weeks - Rehabilitation Potential Physical Therapy Diagnosis: Patient presents with hypomobility- she has decreased ROM,strength and flexibility leading to abnormal gait pattern and decerased ability to perform painfree ADL's. Rehabilitation Potential: Good - Anticipated Interventions Patient/Client Instruction: Educate patient on: Benefits of Fitness Program Therapeutic Exercise to Include: Strength training, Endurance training, Balance training, Agility training, Body mechanics, Postural training, Flexibilty training, Gait and locomotor training, Neuromotor development, Passive ROM, Active ROM, Dynamic Lumbar Stabilization, Scapular Strength/Stabilization For the Purpose of:: To improve muscle performance and motor function Manual Therapy Techniques to Include: Mobilization, Functional dry needling, Soft tissue mobilization For the Purpose of:: To improve nutrient delivery to tissue TENS: Yes Cryotherapy (ice pack, ice massage): Yes Thermo therapy (hot pack): Yes Ultrasound (thermal/non thermal): Yes For the Purpose of:: To decrease pain Thank you for the opportunity to evaluate your patient. For Medicare and Medicare HMO plans, please review the plan of care and approve it. It will need to be FAXED BACK to us at [phone] for Medicare purposes. For Medicare only, by signing this I certify the plan of care. Please let me know if there are questions or concerns regarding this plan of care. Physician Signature: Date:
== END 2021-06-08 19:00 | disposition home or self-care (01) ==
LOC: PT 08:30
PROVIDERS: PCP Family Medicine; Referring Provider Podiatrist Foot & Ankle Surgery; Visit Provider Podiatrist Foot & Ankle Surgery
DX: M76.61 Achilles tendinitis, right leg (principal); M72.2 Plantar fascial fibromatosis
CPT/HCPCS: 97035; 97110; 97140; 97161

== ENCOUNTER → 2021-08-24 12:38 | Outpatient (CLI) | payer OTHER, SELFPAY ==
--- NOTE | 2021-08-24 12:50 | CT_ITS ---
STUDY: CT CHEST WITHOUT CONTRAST REASON FOR EXAM: Female, 51 years old. HTN. Cardiac over read examination. RADIATION DOSAGE (If Supplied By Facility): CTDIvol = ( 12.19 ) mGy, DLP = ( 219.42 ) mGycm TECHNIQUE: Transaxial imaging was performed without the administration of intravenous contrast material. Individualized dose optimization techniques were used for this CT. COMPARISON: None. FINDINGS: The lungs are normal. There is no demonstrated pleural abnormality. There are calcifications of the coronary arteries. There are multiple small lymph nodes within the mediastinum, which are normal in size and morphology most compatible with reactive lymph hyperplasia. Normal hilar regions. Normal unenhanced pulmonary arteries. Normal aorta arch and descending thoracic aorta. Normal osseous structures. There is no demonstrated abnormality of the visualized upper abdomen. CT/Limited Chest CT w/CCTA IMPRESSION: Coronary artery calcification. Electronically Signed: Tobias Magaña MD at 14:15 EDT , Service support ,
[2021-08-24 12:52] VITALS: BP 140/67; PULSE 76; RESP 18; O2SAT 98; BMI 43.5
[2021-08-24 13:13] VITALS: BP 140/67; PULSE 80
[2021-08-24] MEDS: Metoprolol Tartrate 5 MG/5 ML Vial IV (13:13)
[2021-08-24] MEDS: 0.9% Saline Lock 10 ML Syringe IV (13:15)
[2021-08-24 13:36] VITALS: BP 142/70; PULSE 71; RESP 16; O2SAT 98
--- NOTE | 2021-08-24 17:35 | CA.SCORE ---
Calcium Scoring Coronary Calcium Scoring: High-resolution Computed Tomographic imaging of the chest was performed on [08/24/2021], with particular attention paid to the coronary arteries. Images from the examination were analyzed for the presence and extent of coronary artery calcification , using coronary calcium quantification software. The patient tolerated the procedure well and there were no complications. The results of the coronary calcification analysis are provided below. Left main coronary artery score 0 Left anterior descending artery score 39 Left circumflex artery score 0 Right coronary artery score 0 Total Agatston score 39.7. The above is suggestive of mild plaque burden but the amount of calcification for her age places her at the 90th percentile Calcium Scoring Interpretation: 0 No identifiable atherosclerotic plaque. Very low cardiovascular disease risk. <5% chance of presence coronary artery disease A Negative Examination 1-10 Minimal Plaque burden. Significant coronary artery disease very unlikely. 11-100 Mild plaque burden. Likely mild or minimal coronary atherosclerosis. 101-400 Moderate plaque burden Moderate non-obstructive coronary artery disease highly likely. Over 400 Extensive plaque burden. High likelihood of at least one significant coronary stenosis (>50% diameter)
== END ==
PROVIDERS: PCP Family Medicine; Referring Provider Internal Medicine Cardiovascular Disease; Visit Provider Internal Medicine Cardiovascular Disease
DX: I10 Essential (primary) hypertension (principal); Z86.73 Personal history of transient ischemic attack (TIA), and cerebral infarction without residual deficits
CPT/HCPCS: 75571; 76380; 96374

== ENCOUNTER → 2021-10-04 11:51 | Outpatient (CLI) | payer OTHER, SELFPAY ==
--- NOTE | 2021-10-04 11:55 | RAD_ITS ---
STUDY: X-RAY - RIGHT ANKLE REASON FOR EXAM: Female, 51 years old. Medial ankle pain after hearing a pop. TECHNIQUE: 3 view(s) of the ankle. COMPARISON: None. FINDINGS: Normal visualized distal tibia and fibula. Normal medial and lateral malleoli. Normal tibiotalar articulation and ankle mortise. Large inferior calcaneal spur. The visualized subtalar, talonavicular, calcaneocuboid and tarsal articulations are normal. Minimal lateral soft tissue swelling. RAD/Ankle min 3 Views IMPRESSION: Large inferior calcaneal spur. Minimal lateral soft tissue swelling. No acute osseous abnormality. Electronically Signed: Johnny Christianson MD at 12:07 EST , Service support ,
== END ==
PROVIDERS: PCP Family Medicine; Visit Provider Family Medicine
DX: M25.571 Pain in right ankle and joints of right foot (principal)
CPT/HCPCS: 73610

== ENCOUNTER → 2021-11-13 10:32 | Outpatient (CLI) | payer OTHER, SELFPAY ==
--- NOTE | 2021-11-13 10:34 | BI_ITS ---
MAMMOGRAPHY - BILATERAL SCREENING REASON FOR EXAM: Female, 51 years old. Routine annual screening examination. PERTINENT HISTORY: Non-contributory. TECHNIQUE: Digital bilateral breast isaiah (3D mammographic acquisition) in the CC and MLO projections. 2-D mediolateral oblique (MLO) and craniocaudad (CC) views of both breasts were obtained. CAD: Full Field Digital Mammography with Computer Added Detection was performed. COMPARISON: Comparison is made with prior study dated 10/12/2019 and 02/28/2018. FINDINGS: Breast Composition: There are scattered areas of fibroglandular density. There are no dominant masses or suspicious calcifications. Stable benign-appearing bilateral axillary lymph nodes. Stable asymmetry of breast tissue where more breast tissue is seen in the deep upper lateral portion of the right breast as compared to the left side. No other significant abnormalities are identified. There has been no significant change since the prior study. BI/SCRN MAMM (CAD)W/ISAIAH BILAT IMPRESSION: Stable bilateral screening mammogram. Yearly follow-up mammogram recommended. (A) ASSESSMENT CATEGORY: BIRADS Category 2: Benign. A letter regarding these results will be sent to the patient by the facility within 30 days. Approximately 10% of breast cancers are not detected by mammography. A normal mammogram should not delay biopsy of a clinically suspicious abnormality. [id number] Electronically Signed: Tobias Magaña MD at 12:22 EST , Service support ,
== END ==
PROVIDERS: PCP Family Medicine; Referring Provider Family Medicine; Visit Provider Family Medicine
DX: Z12.31 Encounter for screening mammogram for malignant neoplasm of breast (principal)
CPT/HCPCS: 77063; 77067

== ENCOUNTER → 2022-05-25 | Outpatient (CLI) | payer OTHER, SELFPAY ==
--- NOTE | 2022-05-25 17:48 | RAD_ITS ---
EXAM: XR RIGHT FOOT COMPLETE, 3 OR MORE VIEWS CLINICAL INDICATION: PAIN TECHNIQUE: Frontal, lateral and oblique views of the right foot. This report was created using [employer] report generation technology. COMPARISON: None. FINDINGS: BONES/JOINTS: There is a calcaneal spur. No acute fracture. No subluxation. Normal alignment. Preservation of the joint space. No sclerotic or destructive changes observed. SOFT TISSUES: Unremarkable. No soft tissue swelling or gas. No radiopaque foreign body. RAD/Foot min 3 Views IMPRESSION: No acute findings in the right foot. Electronically Signed: Elijah Salcedo MD at 19:08 EDT ,
--- NOTE | 2022-05-25 17:48 | RAD_ITS ---
STUDY: XR Ankle Min 3 Views REASON FOR EXAM: Female, 52 years old. ANKLE PAIN TECHNIQUE: XR Ankle Min 3 Views RIGHT COMPARISON: None. FINDINGS: Normal visualized distal tibia and fibula. Normal medial and lateral malleoli. Normal tibiotalar articulation and ankle mortise. The visualized subtalar, talonavicular, calcaneocuboid and tarsal articulations are normal. There is a plantar calcaneal spur. There is soft tissue swelling around the ankle. RAD/Ankle min 3 Views IMPRESSION: There is soft tissue swelling. Electronically Signed: Elijah Salcedo MD at 19:08 EDT ,
== END | disposition home or self-care (01) ==
LOC: RAD 17:13
PROVIDERS: PCP Family Medicine; Referring Provider Family Medicine; Visit Provider Family Medicine
DX: M77.31 Calcaneal spur, right foot (principal); M25.571 Pain in right ankle and joints of right foot; M79.671 Pain in right foot
CPT/HCPCS: 73610; 73630

== ENCOUNTER → 2022-08-13 | Outpatient (CLI) | payer OTHER, SELFPAY ==
[2022-08-13 10:05] LABS: Hemoglobin A1c 6.7 % (3.8-5.6)
== END | disposition home or self-care (01) ==
LOC: LAB 09:33
PROVIDERS: PCP Family Medicine; Visit Provider Family Medicine
DX: R73.01 Impaired fasting glucose (principal)
CPT/HCPCS: 83036

== ENCOUNTER → 2023-04-02 | Outpatient (CLI) | payer OTHER, SELFPAY ==
--- NOTE | 2023-04-02 10:15 | RAD_ITS ---
STUDY: X-RAY - PELVIS AND LEFT HIP REASON FOR EXAM: Female, 52 years old. PAIN TECHNIQUE: 3 views of the pelvis and hip. COMPARISON: None. FINDINGS: There is a non-specific bowel gas pattern. Normal visualized soft tissue structures. Normal bilateral iliac wings, sacroiliac joints and visualized sacrum. Normal bilateral superior and inferior pubic rami. Normal pubic symphysis. Normal bilateral ischial tuberosities. Normal visualized femoral head. Normal acetabulum. Normal hip joint. RAD/HIP, UNI W/ Pelvis 2-3 Views IMPRESSION: Normal x-ray examination of the pelvis and hip. Electronically Signed: Jin Delgado MD at 19:53 EDT ,
== END | disposition home or self-care (01) ==
LOC: RAD.FUTURE 09:05 → RAD 10:14
PROVIDERS: PCP Family Medicine; Referring Provider Family Medicine; Visit Provider Family Medicine
DX: M25.552 Pain in left hip (principal)
CPT/HCPCS: 73502

== ENCOUNTER → 2023-04-02 | Outpatient (CLI) | payer OTHER, SELFPAY ==
--- NOTE | 2023-04-02 08:59 | VDLE_ITS ---
Reason For Study: edema RIGHT LEFT CFV is compressible, spontaneous, phasic, CFV is compressible, spontaneous, phasic, competent and demonstrates normal competent, and demonstrates normal augmentation. augmentation. FV is compressible, spontaneous, phasic, FV is compressible, spontaneous, phasic, competent and demonstrates normal competent and demonstrates normal augmentation. augmentation. POP V is compressible, spontaneous, phasic, POP V is compressible, spontaneous, phasic, competent and demonstrates normal competent and demonstrates normal augmentation. augmentation. T/P Trunk is compressible. T/P Trunk is compressible. PTV is compressible. PTV is compressible. RT PerV is compressible. LT PerV is compressible. SFJ is competent and measures .54 cm. SFJ is competent and measures .41 cm. GSV in the proximal thigh is competent and Education Supervisor Vein 17 cm proximal to the medial measures .44 x .51 cm. The remainder of the malleolus is incompetent for greater than .5 GSV is absent. seconds. Education Supervisor Vein 12 cm proximal to the medial GSV, SSV, and ASV are absent. malleolus is incompetent for greater than .5 seconds. SSV proximal calf is INCOMPETENT for greater than 0.5 seconds and measures .35 x .36 cm. ASV mid thigh is INCOMPETENT for greater than 0.5 seconds and measures .28 x .28 cm. ASV mid calf is INCOMPETENT for greater than 0.5 seconds and measures .25 x .28 cm. Procedure This is a venous duplex using B-mode, color flow and spectral Doppler. Exam performed in department. The exam was diagnostic. VL/Venous Duplex US - Ricardo Extrem Interpretation Summary Deep veins of the bilateral lower extremities are patent and compressible segme ntally. There is no evidence of bilateral lower extremity deep vein thrombosis. The right great sap henous vein appears patent and compressible segmentally. The left great saphenous vein is absent. Positive for reflux in the right small saphenous vein, accessory saphenous vein and medial calf lab rep. Positive for reflux in left medial calf lab rep. Ordering Physician: Lakeisha Wetzel Performed By: Kadeem Pulido RVT
--- NOTE | 2023-04-02 09:00 | ART_ITS ---
Reason For Study: PVD Procedure A bilateral lower extremity continuous wave Doppler with analog waveform analysis,segmental pressures,and ankle brachial indexes without exercise. Left Segmental Pressures Left brachial= 155mmHg. Left posterior tibial artery = 197mmHg. Left dorsalis pedis artery = 187mmHg. The left dorsalis pedis waveforms are triphasic. The left posterior tibial artery waveforms are triphasic. Right Segmental Pressures Right brachial= 154mmHg. Right posterior tibial artery = 212mmHg. Right dorsalis pedis artery = 180mmHg. The right dorsalis pedis waveforms are triphasic. The right posterior tibial artery waveforms are triphasic. Indices The right ankle brachial index by the posterior tibial artery is 1.37. The right ankle brachial index by the dorsalis pedis is 1.16. The left ankle brachial index by the posterior tibial artery is 1.27. The left ankle brachial index by the dorsalis pedis is 1.21. VL/Lower Ext Art Exam w/o Exercis Interpretation Summary Right ABHISHEK 1.37, normal. Doppler/PVR waveforms of the right leg normal at rest. Left ABHISHEK 1.27, normal. Doppler/PVR waveforms of the left leg normal at rest. Ordering Physician: Lakeisha Wetzel Performed By: Kadeem Pulido RVT
== END | disposition home or self-care (01) ==
PROVIDERS: PCP Family Medicine; Referring Provider Family Medicine; Visit Provider Family Medicine
DX: I73.9 Peripheral vascular disease, unspecified (principal); R60.9 Edema, unspecified
CPT/HCPCS: 93923; 93970

== ENCOUNTER → 2023-05-27 | Outpatient (CLI) | payer OTHER, SELFPAY ==
--- NOTE | 2023-05-27 15:27 | MRI_ITS ---
EXAM: MR LEFT LOWER EXTREMITY WITHOUT INTRAVENOUS CONTRAST, HIP CLINICAL INDICATION: LT HIP PAIN QUESTION LABRAL TEAR TECHNIQUE: Multiplanar and multisequence MR images of the left hip without intravenous contrast. COMPARISON: 04/02/23 FINDINGS: TENDONS: FLEXORS: Unremarkable. Intact. EXTENSORS/HAMSTRING: Unremarkable. Intact. ABDUCTORS: Unremarkable. Intact. ADDUCTORS: Unremarkable. Intact. ROTATORS: Unremarkable. Intact. MUSCLES: Unremarkable. Normal bulk and signal. FLUID: Unremarkable. No joint effusion. No trochanteric bursitis. LABRUM: Signal alteration involving the anterior labrum raises concern for a labral tear tear with adjacent small intraosseous ganglion cyst also noted. This can be confirmed and further characterized with MR arthrography. CARTILAGE: Unremarkable. Articular cartilage intact. BONES/JOINTS: See above. OTHER SOFT TISSUES: Colonic diverticulosis but no acute diverticulitis. No free fluid in the pelvis. INTRAPERITONEAL SPACE: Unremarkable. No free air. No free fluid in the pelvis. MRI/Lower Ext Joint Only (Routine) IMPRESSION: Signal alteration involving the anterior labrum raises concern for a labral tear tear with adjacent small intraosseous ganglion cyst also noted. This can be confirmed and further characterized with MR arthrography. Electronically Signed: Brayden Ramirez MD at 22:00 EDT ,
== END | disposition home or self-care (01) ==
LOC: MRI 15:22
PROVIDERS: PCP Family Medicine; Referring Provider Family Medicine; Visit Provider Family Medicine
DX: S73.192A Other sprain of left hip, initial encounter (principal); M25.552 Pain in left hip; X58.XXXA Exposure to other specified factors, initial encounter
CPT/HCPCS: 73721

== ENCOUNTER 2023-05-30 05:18 | Day surgery (SDC) | payer OTHER, SELFPAY ==
[2023-05-30] MEDS: Lactated Ringers 1,000 ML 15 ML IV (05:55)
[2023-05-30 05:56] VITALS: BP 147/81; PULSE 70; RESP 18; TEMP 36.4; O2SAT 98; BMI 44.1
--- NOTE | 2023-05-30 06:29 | PCM.HP.BLA ---
History and Physical Date of Admission: 05/30/23 needs egd and colonoscopy Details: TONEY MCDONALD, is a 52 F who presents to the office today to establish with GI for EGD and colonoscopy. She has never had either upper or lower endoscopy. Has long hx of acid reflux, usually just takes pantoprazole 40 mg prn but lately taking it daily--notes increase in reflux with increased stress ( and son with health issues). No dysphagia, nausea, vomiting, early satiety, abd pain. Occas flutters in retrosternal region, especially when lying on right side, no SOB or other assoc symptoms. No diarrhea, constipation, melena, hematochezia. ROS Const Constitutional: No fatigue ENT ENT: No difficulty swallowing Gastro GI: Positive for heartburn; No abdominal pain, belching, bloating, change in bowel habits, change in stool character, coffee ground emesis, constipation, cramping, diarrhea, difficulty swallowing, feeling full early, excessive flatus, incontinent of stools, Vomiting blood/hematemesis, Blood in stool, loose stools, Black,tarry stools, nausea/dyspepsia, pain with swallowing, vomiting or other Musc Musculoskeletal: Positive for joint pain and joint swelling Skin Skin: No yellowing of the eye or itchy eyes Psych Psychiatric: No anxiety and No depression Endo Endocrine: No fatigue Aller/Imm Allergy/Immunologic: No itchy eyes Sekou/Lymp Hematologic/Lymphatic: No easy bleeding or easy bruising Exam Const General: cooperative and comfortable Orientation: alert, awake and oriented x3 Quality Reporting Tobacco Screening ([facility] 138) Smoking Status: Never smoker Assessment and Plan Assessment and Plan (1) GERD (gastroesophageal reflux disease): Status: Chronic Plan: Continue pantoprazole 40 mg qam Schedule EGD to eval for esophagitis, Penn's, hiatal hernia, and will also get screening colonoscopy f/u in office 2 wks later to discuss biopsy results (2) Colonoscopy planned: Status: Acute Plan: see above I have examined the patient and the H&P has been reviewed. There are no clinical changes since date of exam.
--- NOTE | 2023-05-30 06:30 | COLBX_PTH ---
PATIENT: TONEY MCDONALD LOC: EN U#:[id number] AGE/SX: 53/F ROOM: RE05/30/[address]: Dr. Al Mayo DO : 1970 BED: DIS: 05/30/2023 SPEC #: [id number] RECD: 05/30/23 13:14 STATUS: BRINDA RICHA #: [id number] GENO: 05/30/23 06:[address]: Al Mayo DEPT: SURGICAL PATHOLOGY RECD BY: Jadyn Muñoz ENTERED: 05/30/23 14:08 SP TYPE: COLON BX OTHR DR: Dr. Lakeisha Wetzel DO Tissues: A - Esophagus, NOS B - Transverse colon Procedures: Special Stain Group II Surgery Specimen Level IV Alcian Blue/PAS (control) HEADER OPERATION: Colonoscopy, EGD ([facility]), biopsy PRE-OP DIAGNOSIS: GERD TISSUE SUBMITTED: A - Distal esophagus biopsy, B - Transverse polyp biopsy MICROSCOPIC DIAGNOSIS A. Distal esophagus, biopsy: Fragments of gastric mucosa with chronic inflammation. No evidence of goblet cell metaplasia. See comment. B. Transverse colon polyp, biopsy: Tubular adenoma. AM:yuko 05/31/2023 COMMENT A. Alcian blue/PAS stain with matched control supports the above diagnosis. MICROSCOPIC DESCRIPTION Slides are reviewed. GROSS DESCRIPTION A - Received in fixative is one container labeled with the patient's name and designated distal esophagus. The specimen consists of two irregular fragments of light chavez soft tissue that in aggregate measure 0.6 x 0.3 x 0.1 cm. The specimen is totally submitted in one cassette. B - Received in fixative is one container labeled with the patient's name and designated transverse polyp biopsy. The specimen consists of one irregular fragment of light chavez soft tissue that measures 0.4 x 0.3 x 0.1 cm. The specimen is totally submitted in one cassette. / SJ:yuko 05/30/2023 TC:3 CPT: 39207 x2, 97550
[2023-05-30 06:51] LABS: Bedside Glucose 123 mg/dL (74-106)
[2023-05-30 07:04] VITALS: BP 125/72; BP 147/81; PULSE 74; RESP 16; TEMP 36.4; O2SAT 100
--- NOTE | 2023-05-30 07:08 | OP.CCLET_ITS ---
05/30/2023 Lakeisha Wetzel [address] [facility] [place] [address] Re : Upper GI endoscopy procedure for Jordyn Mcpherson Dear Dr. Wetzel This procedure was performed on May. My impressions and recommendations are as follows: Impressions : - Z-line irregular, 40 cm from the incisors. Biopsied. - Small hiatal hernia. - A few gastric polyps. - Normal second portion of the duodenum. - Biopsies were obtained in the lower third of the esophagus. Recommendations : - Discharge patient to home. - Resume previous diet. - Continue present medications. - Await pathology results. - Repeat upper endoscopy for surveillance. My findings are described in the full procedure note, which is enclosed. If I can be of further assistance, please feel free to contact me at . Sincerely, Al Mayo, 05/30/2023 7:07:18 AM This report has been signed electronically.
--- NOTE | 2023-05-30 07:08 | OP.EGD_ITS ---
Patient Name: Jordyn Mcpherson Procedure Date: 05/30/2023 6:28 AM Date of : 1970 Age: 53 Procedure: Upper GI endoscopy Indications: Heartburn, Suspected esophageal reflux Providers: Al Mayo DO Referring MD: Lakeisha Wetzel Medicines: Propofol per Anesthesia Patient Profile: This is a 53 year old female. Refer to note in patient chart for documentation of history and physical. Patient has symptoms of chronic heartburn. Complications: No immediate complications. Procedure: Pre-Anesthesia Assessment: - Prior to the procedure, a History and Physical was performed, and patient medications and allergies were reviewed. The patient is competent. The risks and benefits of the procedure and the sedation options and risks were discussed with the patient. All questions were answered and informed consent was obtained. Patient identification and proposed procedure were verified by the physician. Mental Status Examination: normal. Prophylactic Antibiotics: The patient does not require prophylactic antibiotics. Prior Anticoagulants: The patient has taken no previous anticoagulant or antiplatelet agents. After reviewing the risks and benefits, the patient was deemed in satisfactory condition to undergo the procedure. The anesthesia plan was to use monitored anesthesia care (MAC). Immediately prior to administration of medications, the patient was re-assessed for adequacy to receive sedatives. The heart rate, respiratory rate, oxygen saturations, blood pressure, adequacy of pulmonary ventilation, and response to care were monitored throughout the procedure. The physical status of the patient was re-assessed after the procedure. After obtaining informed consent, the endoscope was passed under direct vision. Throughout the procedure, the patient's blood pressure, pulse, and oxygen saturations were monitored continuously. The was introduced through the mouth, and advanced to the second part of duodenum. The upper GI endoscopy was accomplished with ease. The patient tolerated the procedure well. Scope In: 6:39:28 AM Scope Out: 6:42:16 AM Total Procedure Duration Time 0 hours 2 minutes 48 seconds Findings: The Z-line was irregular and was found 40 cm from the incisors. Biopsies were taken with a cold forceps for histology. Verification of patient identification for the specimen was done. Biopsies were obtained with cold forceps for histology in a targeted manner in the lower third of the esophagus. Verification of patient identification for the specimen was done. Estimated blood loss was minimal. A small hiatal hernia was present. A few 5 mm sessile polyps with no bleeding were found in the gastric fundus and in the gastric body. The second portion of the duodenum was normal. Impression: - Z-line irregular, 40 cm from the incisors. Biopsied. - Small hiatal hernia. - A few gastric polyps. - Normal second portion of the duodenum. - Biopsies were obtained in the lower third of the esophagus. Recommendation: - Discharge patient to home. - Resume previous diet. - Continue present medications. - Await pathology results. - Repeat upper endoscopy for surveillance. Procedure Code(s): --- Professional --- 45258, Esophagogastroduodenoscopy, flexible, transoral; with biopsy, single or multiple CPT copyright 2017 [employer]. All rights reserved. The codes documented in this report are preliminary and upon director corporate security review may be revised to meet current compliance requirements. Al Mayo DO 05/30/2023 7:07:18 AM This report has been signed electronically. Number of Addenda: 0 Note Initiated On: 05/30/2023 6:28 AM
[2023-05-30 07:10] VITALS: BP 112/75; BP 147/81; PULSE 68; RESP 16; O2SAT 100
--- NOTE | 2023-05-30 07:15 | OP.COLON_ITS ---
Patient Name: Jordyn Mcpherson Procedure Date: 05/30/2023 6:42 AM Date of : 1970 Age: 53 Procedure: Colonoscopy Indications: Screening for colorectal malignant neoplasm Providers: Al Mayo DO Referring MD: Lakeisha Wetzel Medicines: Monitored Anesthesia Care Patient Profile: This is a 53 year old female. Refer to note in patient chart for documentation of history and physical. Patient has symptoms of chronic heartburn. Last Colonoscopy: none. The patient's first colonoscopy is today. Complications: No immediate complications. Procedure: Pre-Anesthesia Assessment: - Prior to the procedure, a History and Physical was performed, and patient medications and allergies were reviewed. The patient is competent. The risks and benefits of the procedure and the sedation options and risks were discussed with the patient. All questions were answered and informed consent was obtained. Patient identification and proposed procedure were verified by the physician. Mental Status Examination: normal. Prophylactic Antibiotics: The patient does not require prophylactic antibiotics. Prior Anticoagulants: The patient has taken no previous anticoagulant or antiplatelet agents. After reviewing the risks and benefits, the patient was deemed in satisfactory condition to undergo the procedure. The anesthesia plan was to use monitored anesthesia care (MAC). Immediately prior to administration of medications, the patient was re-assessed for adequacy to receive sedatives. The heart rate, respiratory rate, oxygen saturations, blood pressure, adequacy of pulmonary ventilation, and response to care were monitored throughout the procedure. The physical status of the patient was re-assessed after the procedure. After I obtained informed consent, the scope was passed under direct vision. Throughout the procedure, the patient's blood pressure, pulse, and oxygen saturations were monitored continuously. The was introduced through the anus and advanced to the cecum, identified by appendiceal orifice and ileocecal valve. The ileocecal valve, appendiceal orifice, and rectum were photographed. Scope In: 6:44:56 AM Scope Withdrawal Time 0 hours 9 minutes 51 seconds Scope Out: 6:59:26 AM Total Procedure Duration Time 0 hours 14 minutes 30 seconds Findings: The perianal and digital rectal examinations were normal. A 9 mm polyp was found in the transverse colon. The polyp was sessile. The polyp was removed with a jumbo cold forceps. Resection and retrieval were complete. Verification of patient identification for the specimen was done. Estimated blood loss was minimal. Multiple small and large-mouthed diverticula were found in the recto-sigmoid colon, sigmoid colon, descending colon and splenic flexure. The exam was otherwise without abnormality on direct and retroflexion views. Impression: - One 9 mm polyp in the transverse colon, removed with a jumbo cold forceps. Resected and retrieved. - Diverticulosis in the recto-sigmoid colon, in the sigmoid colon, in the descending colon and at the splenic flexure. - The examination was otherwise normal on direct and retroflexion views. Recommendation: - Discharge patient to home. - Resume previous diet. - Continue present medications. - Await pathology results. - Repeat colonoscopy in 5 years for surveillance. Procedure Code(s): --- Professional --- 08657, Colonoscopy, flexible; with biopsy, single or multiple CPT copyright 2017 [employer]. All rights reserved. The codes documented in this report are preliminary and upon pre coder review may be revised to meet current compliance requirements. Al Mayo DO 05/30/2023 7:14:35 AM This report has been signed electronically. Number of Addenda: 0 Note Initiated On: 05/30/2023 6:42 AM
--- NOTE | 2023-05-30 07:16 | OP.CCLET_ITS ---
05/30/2023 Lakeisha Wetzel [address] [facility] [place] [address] Re : Colonoscopy procedure for Jordyn Mcpherson Dear Dr. Wetzel This procedure was performed on May. My impressions and recommendations are as follows: Impressions : - One 9 mm polyp in the transverse colon, removed with a jumbo cold forceps. Resected and retrieved. - Diverticulosis in the recto-sigmoid colon, in the sigmoid colon, in the descending colon and at the splenic flexure. - The examination was otherwise normal on direct and retroflexion views. Recommendations : - Discharge patient to home. - Resume previous diet. - Continue present medications. - Await pathology results. - Repeat colonoscopy in 5 years for surveillance. My findings are described in the full procedure note, which is enclosed. If I can be of further assistance, please feel free to contact me at . Sincerely, Al Mayo, 05/30/2023 7:14:35 AM This report has been signed electronically.
[2023-05-30 07:20] VITALS: BP 120/73; BP 147/81; PULSE 62; RESP 16; O2SAT 100
[2023-05-30 07:25] VITALS: BP 132/78; BP 147/81; PULSE 66; RESP 16; TEMP 36.2; O2SAT 100
[2023-05-30 07:38] VITALS: BP 147/81
== END 2023-05-30 07:50 | disposition home or self-care (01) ==
LOC: EN 05:19 → AC 05:20
PROVIDERS: PCP Family Medicine; Referring Provider Family Medicine; Visit Provider Internal Medicine Gastroenterology
PROC: 0DJD8ZZ Inspection of Lower Intestinal Tract, Via Natural or Artificial Opening Endoscopic (ICD-10-PCS; CPT 45378; principal; 2023-05-30 06:25)
DX: Z12.11 Encounter for screening for malignant neoplasm of colon (principal); K57.30 Diverticulosis of large intestine without perforation or abscess without bleeding; K31.7 Polyp of stomach and duodenum; K44.9 Diaphragmatic hernia without obstruction or gangrene; K21.00 Gastro-esophageal reflux disease with esophagitis, without bleeding; Z79.899 Other long term (current) drug therapy; D12.3 Benign neoplasm of transverse colon; Z79.82 Long term (current) use of aspirin; E66.9 Obesity, unspecified
CPT/HCPCS: 45380; 43239; 82962; 88305; 88313; J7120; J2405

== ENCOUNTER → 2023-08-09 | Outpatient (CLI) | payer OTHER, SELFPAY ==
--- NOTE | 2023-08-09 16:34 | RAD_ITS ---
STUDY: X-RAY - LEFT SHOULDER REASON FOR EXAM: Female, 53 years old. PAIN TECHNIQUE: 4 view(s) of the shoulder. COMPARISON: None. FINDINGS: Mildly narrowed glenohumeral articulation. Normal acromioclavicular joint. Normal acromion. Normal humeral head and visualized proximal humerus. The soft tissue structures are unremarkable. Normal visualized pulmonary apex. RAD/Shoulder min 2 Views IMPRESSION: Mild degenerative change. No acute fracture or dislocation. Electronically Signed: King Amanda MD at 18:07 EDT ,
== END | disposition home or self-care (01) ==
PROVIDERS: PCP Family Medicine; Referring Provider Family Medicine; Visit Provider Family Medicine
DX: M25.512 Pain in left shoulder (principal)
CPT/HCPCS: 73030

== ENCOUNTER → 2023-09-24 | Outpatient (CLI) | payer OTHER, SELFPAY ==
[2023-09-24 12:09] LABS: Hemoglobin A1c 6.3 % (3.8-5.6)
[2023-09-24 12:21] LABS: Free T3 2.7 pg/mL (2.18-3.98); T4 Free Direct 0.84 ng/dL (0.76-1.46); Thyroid Stim Hormone (TSH) 2.67 uIU/mL (0.358-3.74)
[2023-09-25 15:08] LABS: Thyroglobulin Antibody < 1.0 IU/mL (0.0-0.9); Thyroid Peroxidase AB 11 IU/mL (0-34)
== END | disposition home or self-care (01) ==
PROVIDERS: PCP Family Medicine; Referring Provider Family Medicine; Visit Provider Family Medicine
DX: E03.9 Hypothyroidism, unspecified (principal); E11.9 Type 2 diabetes mellitus without complications
CPT/HCPCS: 36415; 83036; 84439; 84443; 84481; 86376; 86800

== ENCOUNTER → 2024-01-06 | Outpatient (CLI) | payer OTHER, SELFPAY ==
--- NOTE | 2024-01-06 09:02 | ECHOCS_ITS ---
Reason For Study: ATRIAL MFIBRILLATION Procedure This was a 2D Doppler, Color Flow transthoracic echocardiogram. The study was technically difficult. Contrast injection was performed. Left Ventricle Normal LV size. Left ventricular systolic function is normal. The estimated ejection fraction is 65 %. Stage 1 diastolic dysfunction. No regional wall motion abnormalities noted. Right Ventricle Normal RV size. Normal systolic function. Atria The left atrium is mildly enlarged. Normal right atrium. Mitral Valve Normal mitral valve. Tricuspid Valve Normal tricuspid valve. Mild tricuspid valve insufficiency. Pulmonary artery systolic pressure is 29 mmHg. Aortic Valve Normal aortic valve. Pulmonic Valve Normal pulmonic valve. Great Vessels Normal aortic root. The pulmonary artery is normal size. Normal inferior vena cava. Pericardium/Pleural No pericardial effusion. Medication 22 gauge I.V. with prn adaptor inserted into right arm. Diluted definity 2.0ml given slow IV push to enhance endocardial definition. MMode/2D Measurements & Calculations LVIDd: 5.0 cm IVSd: 0.82 cm Ao root diam: 3.0 cm LVIDs: 3.1 cm LVPWd: 1.0 cm LA dimension: 4.3 cm RVDd: 3.6 cm FS: 36.7 % LAV(MOD-bp): 80.8 ml LVAd ap4: 23.1 cm2 SV(MOD-sp4): 38.1 ml LAV(MOD-bp) Indexed: 35.4 ml/m2 LVLd ap4: 7.4 cm LAV(MOD-sp2): 80.1 ml EDV(MOD-sp4): 60.4 ml LAV(MOD-sp4): 81.1 ml EDV(sp4-el): 60.9 ml LVAs ap4: 12.3 cm2 LVLs ap4: 6.1 cm ESV(MOD-sp4): 22.3 ml ESV(sp4-el): 21.1 ml EF(MOD-sp4): 63.1 % EF(sp4-el): 65.3 % SV(sp4-el): 39.7 ml LA A4 area: 23.8 cm2 RA A4 area: 16.5 cm2 TAPSE: 2.5 cm Time Measurements MV dec time: 0.22 sec Doppler Measurements & Calculations MV E max tyrel: 97.8 cm/sec Lat Peak E' Tyrel: 7.2 cm/sec Med Peak E' Tyrel: 6.9 cm/sec MV A max tyrel: 118.3 cm/sec E/E' lat: 13.6 E/E' med: 14.1 MV E/A: 0.83 MV V2 max: 132.1 cm/sec MV P1/2t max tyrel: 119.6 cm/sec Ao V2 max: 183.4 cm/sec MV max P.0 mmHg MV P1/2t: 83.1 msec Ao max P.5 mmHg MV V2 mean: 75.5 cm/sec Ao V2 mean: 128.1 cm/sec MV mean P.6 mmHg MV dec slope: 421.8 cm/sec2 Ao mean P.4 mmHg MV V2 VTI: 35.7 cm MVA(P1/2t): 2.6 cm2 Ao V2 VTI: 41.4 cm AV (velocity ratio): 0.86 LV V1 max: 153.3 cm/sec PA V2 max: 118.9 cm/sec TR max tyrel: 258.5 cm/sec LV V1 max P.4 mmHg PA V2 mean: 87.4 cm/sec TR max P.7 mmHg LV V1 mean P.1 mmHg LV V1 mean: 107.1 cm/sec LV V1 VTI: 35.7 cm ECHO/Echo Complete W/ Contrast Interpretation Summary Normal LV size. Left ventricular systolic function is normal. The estimated ejection fraction is 65 %. The left atrium is mildly enlarged. Stage 1 diastolic dysfunction. Contrast injection was performed. Ordering Physician: Anthony De Jesus Referring Physician: Lakeisha Wetzel Performed By: Rut Durham, NAFISA, RVT
--- OUTSIDE RECORDS SUMMARY | 2024-01-06 09:20 | XMS RPT_ITS | CCD ---
Author Name Unknown Address [address] [facility] [address] [place] [address] Organization [facility] Care Team Providers Care [employer] Name Role Phone VILLAGRAN, BOLA Unavailable Unavailable VILLAGRAN, BOLA Unavailable Unavailable VILLAGRAN, BOLA Unavailable Unavailable VILLAGRAN, BOLA Unavailable Unavailable SAWYER DIETRICH Unavailable Unavailable Allergies Allergy Classification Reported Allergen(s) Allergy Type Date of Onset Reaction(s) Facility (2 sources) NEOMYCIN-BACITRA ABEL-POLYMYXIN; Translations: [NEOMYCIN-BACITR ACIN-POLYMYXIN] Propensity to adverse reactions to drug (disorder) 8 AOF [facility] Other [place] [facility] Problems Active Problems Problem Classification Problem Date Documented Da te Episodic/Chronic Acute cerebrovascular disease (2 sources) Cerebral infarction, unspecified; Translations: [Cerebral infarction, unspecified] Onset: 07-04-2018 Chronic Past or Other Problems Problem Classification Problem Date Documented Da te Episodic/Chronic Unclassified (1 source) Unknown / UNK(Unknown) Onset: 07-04-2018 Results Test Name Value Interpretation Reference Range Facil ity Encounters Encounter Date Encounter Type Care Provider Facility Start: 07-04-2018 End: 07-04-2018 Evaluation and management of inpatient BOLA VILLAGRAN Facility:[facility] Start: 07-04-2018 End: 07-04-2018 Patient encounter BOLA VILLAGRAN [facility] Payers Date Payer Category Payer Policy ID Unknown [id number] Summary Purpose Family History No Family History Records FoundNo Family History Records Found Advance Directives No Advanced Directives Records FoundNo Advanced Directives Records Found Additional Source Comments INFORMATION SOURCE (unrecogn ized section and content) DATE CREATED AUTHOR AUTHOR'S MANPREET ATION 07/23/2018 [facility] FOR RECORDS PERTAINING TO PATIENTS WHO ARE OR HAVE BEEN ENROLLED IN A CHEMICAL DEPENDENCY/SUBSTANCEABUSE PROGRAM, SOME INFORMATION MAY BE OMITTED. This clinical summary was aggregated from multiple sources. Caution should be exercised in using it in the provision of clinical care. This summary normalizes information from multiple sources, and as a consequence, information in this document may materially change the coding, format and clinical context of patient data. In addition, data may be omitted in some cases. CLINICAL DECISIONS SHOULD BE BASED ON THE PRIMARY CLINICAL RECORDS. [facility] [employer] [facility]. provides no warranty or guarantee of the accuracy or completeness of information in this document.
== END | disposition home or self-care (01) ==
LOC: CVS 09:00
PROVIDERS: PCP Family Medicine; Referring Provider Internal Medicine Cardiovascular Disease; Visit Provider Internal Medicine Cardiovascular Disease
DX: I48.91 Unspecified atrial fibrillation (principal); I63.9 Cerebral infarction, unspecified
CPT/HCPCS: 93306; Q9957; A4216; C8929

== ENCOUNTER → 2024-07-21 | Outpatient (CLI) | payer OTHER, SELFPAY | END | disposition home or self-care (01) | PROVIDERS: PCP Family Medicine; Referring Provider Family Medicine; Visit Provider Family Medicine | DX: E11.9 Type 2 diabetes mellitus without complications (principal) | CPT/HCPCS: 36415; 83036 ==

== ENCOUNTER → 2025-01-04 | Outpatient (CLI) | payer OTHER, SELFPAY ==
[2025-01-04 11:38] LABS: Absolute Lymphocyte Count 1.64 X10^3/uL (0.83-4.51); Absolute Neutrophil Count 4.5 X10^3/uL (2.0-7.7); Basophil# 0.03 X10^3/uL; Basophil% 0.4 % (0-1); Eosinophils% 2.9 % (0-5); Hematocrit 40.2 % (37-47); Hemoglobin 13.4 g/dL (12.0-15.0); Lymphocyte # 1.64 X10^3/ul (0.83-4.51); Lymphocyte % 24.1 % (19-41); Mean Corp Hgb Conc 33.3 g/dL (32-36); Mean Platelet Vol. 10.1 fl (6.2-12.0); Monocyte# 0.42 X10^3/uL; Monocyte% 6.2 % (0-10); NRBC Flagged by Analyzer 0 % (0-5); Neutrophil # 4.49 X10^3/uL (2.7-7.7); Platelet Count 158 K/mm3 (150-450); RBC Distribution Width CV 12.5 % (11.6-14.6); RBC Distribution Width SD 39.8 fl (35.1-43.9); Red Blood Count 4.62 M/mm3 (4.2-5.4); White Blood Count 6.8 K/mm3 (4.4-11.0)
[2025-01-04 12:09] LABS: Hemoglobin A1c 6.2 % (3.8-5.6)
[2025-01-04 12:12] LABS: ALB/GLOB Ratio 0.9 RATIO (0.9-2.4); AST(SGOT) 106 U/L (15-37); Alanine Aminotransfer ALT/SGPT 108 U/L (13-56); Albumin, Serum 3.4 g/dL (3.2-5.0); Alkaline Phosphatase 150 U/L (45-117); Anion Gap 6 (5-15); BUN 15 mg/dL (7-18); BUN/Creat Ratio 22.2 RATIO (10-20); Calcium,Total 8.9 mg/dL (8.5-10.1); Chloride 107 mmol/L (98-107); Cholesterol 125 mg/dL (200); Creatinine, Serum 0.68 mg/dL (0.55-1.02); EST Glomerular Filtration Rate 97 mL/min (>60); Est Glom Filt Rate - Afr Amer 117 mL/min (>60); Globulin 3.6 g/dL (2.2-4.2); Glucose 101 mg/dL (74-106); High Density Lipoprotein 59 mg/dL; Sodium Level 139 mmol/L (136-145); T4 Free Direct 0.95 ng/dL (0.76-1.46); Triglycerides 77 mg/dL; Very Low Density Lipoprotein 15 mg/dL (5-40)
== END | disposition home or self-care (01) ==
LOC: LAB 11:05
PROVIDERS: PCP Family Medicine; Referring Provider Nurse Practitioner Family; Visit Provider Nurse Practitioner Family
DX: I10 Essential (primary) hypertension (principal); R00.2 Palpitations; Z86.73 Personal history of transient ischemic attack (TIA), and cerebral infarction without residual deficits
CPT/HCPCS: 36415; 80053; 80061; 83036; 84439; 84443; 85025

== ENCOUNTER → 2025-01-14 | Outpatient (CLI) | payer OTHER, SELFPAY ==
--- NOTE | 2025-01-14 07:54 | BI_ITS ---
PROCEDURE: SCRN MAMM (CAD)W/ISAIAH BILAT REASON FOR EXAM: F, Age 54 y/o, no family history. Routine annual follow-up. TECHNIQUE: Bilateral screening digital breast tomosynthesis with 2D and 3D images. Computer aided detection. COMPARISON: Prior exam(s) dating back to November 13, 2000 21.. FINDINGS: There are scattered areas of fibroglandular density. Stable bilateral axillary lymph nodes. No suspicious masses, areas of developing architectural distortion, or suspicious calcifications. BI/SCRN MAMM (CAD)W/ISAIAH BILAT IMPRESSION: BI-RADS 2: BENIGN. RECOMMEND ANNUAL MAMMOGRAPHIC SCREENING. Follow-up code: Routine Follow-up The patient will be notified of the results by letter. Reading Location: [id number]
== END | disposition home or self-care (01) ==
PROVIDERS: PCP Family Medicine; Referring Provider Family Medicine; Visit Provider Family Medicine
DX: Z12.31 Encounter for screening mammogram for malignant neoplasm of breast (principal)
CPT/HCPCS: 77063; 77067